=== PATIENT | female | born 1975 | race Caucasian/White ===

== ENCOUNTER → 2017-09-29 15:11 | Outpatient (CLI) | payer BC, MEDICAID, SELFPAY ==
--- NOTE | 2017-09-29 15:19 | MRI_ITS ---
STUDY: MRI RIGHT MIDFOOT REASON FOR EXAM: Female, 42 years old. Severe ankle trauma 8 years ago. Pain in ball of foot to mid to proximal metatarsal. Evaluate plantar plate. TECHNIQUE: Standardized fat and water weighted pulse sequences were obtained in all 3 orthogonal planes. COMPARISON: Radiographs of the foot dated October 15, 2016. FINDINGS: Normal talonavicular articulation. Normal calcaneocuboid articulation. Normal navicular-cuneiform articulations. Normal intercuneiform articulations. There is mild arthrosis of the first tarsometatarsal joint (coronal series 6 images 6-12). There are hammertoe deformities of the toes (sagittal series 2 images 2-17). Normal Lisfranc ligament. Normal second and third tarsometatarsal articulations. Normal cuboid fourth and cuboid fifth tarsometatarsal articulation. Normal first through fifth metatarsi. Normal tibialis anterior tendon. Normal extensor hallucis longus tendon. Normal extensor digitorum longus tendons. Normal peroneus longus tendon and distal insertion. Normal peroneus brevis tendon and distal insertion. Normal intrinsic muscles of the mid and forefoot region. Normal extensor digitorum brevis muscle. Normal subcutis adipose space. MRI/Lower Ext/No Jt/w/o IMPRESSION: Osteoarthritic changes as described. No other significant abnormality. Electronically Signed: Manuel English MD at 17:14 EDT , Service support ,
== END ==
PROVIDERS: Family Provider Nurse Practitioner Family; PCP Nurse Practitioner Family; Visit Provider Podiatrist
DX: S93.525A Sprain of metatarsophalangeal joint of left lesser toe(s), initial encounter (principal); X58.XXXA Exposure to other specified factors, initial encounter; Y93.9 Activity, unspecified; Y92.9 Unspecified place or not applicable; Y99.9 Unspecified external cause status
CPT/HCPCS: 73718

== ENCOUNTER → 2017-11-07 11:56 | Outpatient (CLI) | payer BC, MEDICAID, SELFPAY ==
[2017-11-07 12:51] LABS: Absolute Lymphocyte Count 2.37 X10^3/ul (0.83-4.51); Absolute Neutrophil Count 5.1 X10^3/uL (2.0-7.7); Basophil# 0.05 X10^3/uL; Basophil% 0.6 % (0-1); Eosinophil# 0.13 X10^3/uL; Eosinophils% 1.6 % (0-5); Hematocrit 36.9 % (37-47); Lymphocyte # 2.37 X10^3/ul (4.0); Lymphocyte % 29.2 % (19-41); Mean Corp Hgb Conc 32.5 g/gl (32-36); Mean Corpuscular Hgb 30.4 pg (27.0-32.0); Mean Corpuscular Volume 93.4 fL (81-99); Mean Platelet Vol. 8.9 fl (6.2-12.0); Monocyte# 0.44 X10^3/uL; Monocyte% 5.4 % (0-10); Neutrophil # 5.05 X10^3/uL (2.7-7.7); Neutrophil % 62.2 % (47-70); Platelet Count 292 K/mm3 (150-450); RBC Distribution Width CV 14.2 % (11.6-14.6); RBC Distribution Width SD 46.9 fl (35.1-43.9); Red Blood Count 3.95 M/mm3 (4.2-5.4); White Blood Count 8.1 K/mm3 (4.4-11.0)
[2017-11-07 12:52] LABS: POSITIVE COUNT NO; POSITIVE DIFFERENTIAL NO; POSITIVE MORPHOLOGY NO
[2017-11-07 13:16] LABS: ALB/GLOB Ratio 0.8 RATIO (0.9-2.4); AST(SGOT) 18 U/L (15-37); Alanine Aminotransfer ALT/SGPT 38 U/L (13-56); Albumin, Serum 3.3 g/dL (3.2-5.0); Alkaline Phosphatase 83 U/L (45-117); Anion Gap 13 (5-15); BUN 18 mg/dL (7-18); BUN/Creat Ratio 20.6 RATIO (10-20); Calcium,Total 8.5 mg/dL (8.5-10.1); Chloride 107 mmol/L (98-107); Creatinine, Serum 0.87 mg/dL (0.55-1.02); EST Glomerular Filtration Rate 75 mL/min (>60); Est Glom Filt Rate - Afr Amer 91 mL/min (>60); Globulin 3.9 g/dL (2.2-4.2); Glucose 85 mg/dL (74-106); Potassium 3.9 mmol/L (3.5-5.1); Protein, Total 7.2 g/dL (6.4-8.2); Sodium Level 142 mmol/L (136-145)
== END ==
PROVIDERS: Family Provider Nurse Practitioner Family; PCP Nurse Practitioner Family; Visit Provider Family Medicine
DX: Z01.818 Encounter for other preprocedural examination (principal)
CPT/HCPCS: 36415; 80053; 85025

== ENCOUNTER 2017-12-02 05:46 | Day surgery (SDC) | payer BC, MEDICAID, SELFPAY ==
[2017-12-02] VITALS (7 sets, daily range): BP systolic 101–119; BP diastolic 60–77; PULSE 78–87; RESP 16–114; TEMP 36.4–37.2; O2SAT 96–100; BMI 26.4
--- NOTE | 2017-12-02 | BON_PTH ---
PATIENT: WOO MORRIS LOC: [facility] U#:[id number] AGE/SX: 42/F ROOM: RE12/02/[address]: Dr. Cristhian Al DPM : 1975 BED: DIS: 12/02/2017 SPEC #: [id number] RECD: 12/02/17 11:53 STATUS: MACI REElvira #: [id number] ELAINE: 12/02/17 00:[address]: Cristhian Al DEPT: SURGICAL PATHOLOGY RECD BY: Leo Warren ENTERED: 12/02/17 11:53 SP TYPE: Bone OTHR DR: Deny Link, MANAGER OF MAINTENANCE-C Tissues: Bone of foot, NOS Procedures: Decalcification bone/plaque Surgery Specimen Level III HEADER OPERATION: Second metatarsal osteotomy second digit hammertoe, arthroplasty PRE-OP DIAGNOSIS: Left foot hammertoe TISSUE SUBMITTED: Resected bone left second toe and first metatarsal cuneiform MICROSCOPIC DIAGNOSIS Left second toe and first metatarsal cuneiform bone: Pieces of bone with reactive changes, clinically left second digit hammertoe. ANGEL:cain 12/07/17 MICROSCOPIC DESCRIPTION Slides are reviewed. GROSS DESCRIPTION Received in fixative is one container labeled with the patient's name and designated resected bone left second toe and first metatarsal cuneiform. The specimen consists of multiple fragments of bone that in aggregate measure 2.5 x 2.5 x 0.4 cm. The entire specimen is submitted in one cassette after decalcification. / ANGEL:cain 12/02/17 TC:5 CPT: 59706, 97863
--- NOTE | 2017-12-02 06:06 | EKG12_ITS ---
Test Reason : PRE OP Blood Pressure : / mmHG Vent. Rate : 087 BPM Atrial Rate : 087 BPM P-R Int : 124 ms QRS Dur : 092 ms QT Int : 390 ms P-R-T Axes : 058 042 055 degrees QTc Int : 469 ms Normal sinus rhythm Normal ECG Confirmed by SHIRLEY GILES, JAYJAY ([id number]), managing editor SAUD BARBER ([id number]) on 12/07/2017 2:17:55 PM Referred By: Cristhian Al Confirmed By:JAYJAY WATSON MD
[2017-12-02 06:30] LABS: Absolute Lymphocyte Count 2.02 X10^3/ul (0.83-4.51); Absolute Neutrophil Count 4.7 X10^3/uL (2.0-7.7); Basophil# 0.03 X10^3/uL; Basophil% 0.4 % (0-1); Eosinophil# 0.17 X10^3/uL; Eosinophils% 2.2 % (0-5); Hematocrit 34.6 % (37-47); Hemoglobin 11.1 g/dl (12.0-15.0); Lymphocyte # 2.02 X10^3/ul (4.0); Lymphocyte % 26.7 % (19-41); Mean Corp Hgb Conc 32.1 g/gl (32-36); Mean Corpuscular Hgb 30.5 pg (27.0-32.0); Mean Corpuscular Volume 95.1 fL (81-99); Mean Platelet Vol. 8.8 fl (6.2-12.0); Monocyte# 0.63 X10^3/uL; Monocyte% 8.3 % (0-10); Neutrophil # 4.71 X10^3/uL (2.7-7.7); Neutrophil % 62.3 % (47-70); Platelet Count 161 K/mm3 (150-450); RBC Distribution Width CV 13.7 % (11.6-14.6); RBC Distribution Width SD 47.7 fl (35.1-43.9); Red Blood Count 3.64 M/mm3 (4.2-5.4); White Blood Count 7.6 K/mm3 (4.4-11.0)
[2017-12-02 06:35] LABS: POSITIVE COUNT NO; POSITIVE DIFFERENTIAL NO; POSITIVE MORPHOLOGY NO
[2017-12-02 06:49] LABS: ALB/GLOB Ratio 0.9 RATIO (0.9-2.4); AST(SGOT) 12 U/L (15-37); Alanine Aminotransfer ALT/SGPT 24 U/L (13-56); Albumin, Serum 3.4 g/dL (3.2-5.0); Alkaline Phosphatase 81 U/L (45-117); Anion Gap 8 (5-15); BUN 15 mg/dL (7-18); BUN/Creat Ratio 18.6 RATIO (10-20); Calcium,Total 8.4 mg/dL (8.5-10.1); Chloride 111 mmol/L (98-107); Creatinine, Serum 0.81 mg/dL (0.55-1.02); EST Glomerular Filtration Rate 82 mL/min (>60); Est Glom Filt Rate - Afr Amer 99 mL/min (>60); Estimated Creatinine Clearance 83.84 ml/min; Globulin 3.6 g/dL (2.2-4.2); Glucose 74 mg/dL (74-106); Potassium 3.3 mmol/L (3.5-5.1); Sodium Level 142 mmol/L (136-145)
[2017-12-02] MEDS: Cefazolin 2 GM in 0.9% Normal Saline 100 ML IV (07:37)
[2017-12-02] MEDS: Bupivacaine Mpf 0.5% 30 ML VIAL (07:47)
--- NOTE | 2017-12-02 09:27 | PCM.DC.POD ---
Discharge Diet: Light diet - advance as tolerated Discharge Activity: May Not Drive Weight Bearing Status: No weight bearing - No weightbearing to left foot Keep extremity elevated above heart level: Left Leg - Keep left foot elevated for at least 50 minutes per hour using pillows Call your doctor if your incision/area has: Continuous Slow Oozing, Sudden Increased Bleeding, Foul Smelling Discharge Call your doctor if you observe: Fever of 101 or Higher, Coldness, Increased Pain, Shortness of breath, Chest pain, Increased palpitations (irregular heartbeat), Calf discomfort, Uncontrolled pain Cleanse incision/area with: Do not get Incision Wet, Keep Dressing Clean & Dry Allergies/Adverse Reactions: Allergies ciprofloxacin Allergy (Verified 11/25/17 09:37) Rash gabapentin Allergy (Verified 11/25/17 09:37) Other Medications to take at Discharge Albuterol IH (ProAir) [Proair Hfa] 2 puff INHALATION Q4H PRN PRN 11/07/16 Dicyclomine HCl [Bentyl] 20 mg PO Q6H PRN PRN 11/07/16 Estradiol 1 mg PO DAILY 11/07/16 Haloperidol [Haldol] 5 mg PO DAILY 11/07/16 Loratadine 10 mg PO DAILY 11/07/16 Mometasone/Formoterol [Dulera 100 Mcg/5 Mcg Inhaler] 13 gm IH BID 11/07/16 Montelukast Sodium 10 mg PO DAILY 11/07/16 Sumatriptan Succinate [Imitrex] 1 tab PO DAILY PRN 11/07/16 Topiramate [Topamax] 200 mg PO BID 11/07/16 proMETHazine tablet [Phenergan tablet] 25 mg PO Q8H PRN PRN 11/07/16 Sertraline HCl [Zoloft] 100 mg PO DAILY tablet 11/08/16 Oxycodone HCl/Acetaminophen [Percocet 5/325] 1 - 2 tab PO Q6H PRN PRN 3 Days #30 tab 12/02/17 The following prescriptions were given: Oxycodone HCl/Acetaminophen [Percocet 5/325] 1 - 2 tab PO Q6H PRN PRN 3 Days #30 tab PRN Reason: Pain Primary Care Physician: Deny Link NP-C [Primary Care Provider] - Test Results: Test results from this visit will be discussed in further detail at your follow-up appointment, if applicable. Please Follow Up With: Cristhian Al DPM When: within 1 week, sooner if needed
--- NOTE | 2017-12-02 09:28 | PCM.OPRPT ---
Report of Operation Date of Procedure: 12/02/17 Pre-Operative Diagnosis: Metatarsalgia, osteoarthritis, 2nd digit hammer toe, deformed 2nd metatarsal, exostosis 1st metatarsal cuneiform joint all left foot Post-Operative Diagnosis: Same Surgery/Procedure Performed:: 2nd metatarsal osteotomy, left foot. arthroplasty\correction of 2nd digit hammer toe, left. Exostectomy left 1st metatarsal cuneiform joint flight attendant: Yes - Dr. Fontaine Type of Anesthesia:: General, Local Specimen's removed: bone from 2nd digit hammer toe, 2nd metatarsal and 1st metatarsal cuneiform joint all left foot - sent to pathology Estimated Blood Loss (mL): 1mL Description of Procedure: Indications: This is a 42 year old female with chronic left foot pain - at level of the 2nd metatarsal phalangeal joint (MTPJ) and 2nd digit hammer toe, as well as to the 1st metatarsal cuneiform joint exostosis. She has continued limited/significant pain despite changes in shoegear, orthotics, padding, offloading, corticosteroid injection, rest, activity modifications, pain medications. She has elected to undergo surgical intervention - left 2nd metatarsal osteotomy with correction of 2nd digit hammer toe (arthroplasty) as well as 1st metatarsal cuneiform joint exostectomy. This was discussed with her in great detail, reviewed all the possible benefits vs risks, as well as the goals and expectations. Reviewed the typical healing/estimated healing time and post op course. This was discussed with her in detail, she agreed expressed understanding and agreement. All of her questions were answered. No guarantees were given nor implied. Operative Procedure: The patient was brought back to the operating room and was placed onto the operating room table in the supine position. She was carefully secured to the operating room stable with a safety belt around her waist. She received 2 grams of intravenous Ancef for antibiotic prophylaxis. The patient received general anesthesia per the anesthesia team. A well padded pneumatic tourniquet was applied around the left ankle. The left foot was scrubbed, prepped, and draped in the usual aseptic fashion. Further attention was directed to the left foot. There was significant hammer toe deformity of the 2nd digit, there was deformed long 2nd metatarsal and prominent 2nd metatarsal head plantarly. There was exostosis to the dorsal and medial 1st metatarsal cuneiform joint. The patient's left foot was elevated and the left ankle pneumatic tourniquet was inflated to 250mmHg. Using a 15 blade a linear longitudinal skin incision was overlying the dorsal lateral aspect of the 2nd metatarsal phalangeal joint (MTPJ). Careful blunt dissection was completed down through the subcutaneous layer to the dorsal 2nd MTPJ capsule. The capsule of the 2nd MTPJ was identified and was carefully incised dorsally, it was carefully reflected from the dorsal, medial and lateral aspect, exposing the 2nd metatarsal head. There was noted to be significant degenerative changes of the dorsal 2nd metatarsal head due to base of the 2nd digit proximal phalanx sitting on the head of 2nd metatarsal. A McGlamry was used to release the adhesions of the plantar 2nd metatarsal head. Using a powered sagittal saw a Jenaro osteotomy was completed to the 2nd metatarsal, parallel to the weightbearing surface. The 2nd metatarsal head was shorted to be in line with the normal parabola of the metatarsal heads. The osteotomy was fixated using rigid open reduction internal fixation technique using two 2.0mm Synthes screws. There is good bone to bone contact and compression with the fixation. This was confirmed using intraoperative flouroscopy. The screws were not in the 2nd MTPJ. There was also noted to be enlarged plantar condyles of the 2nd metatarsal head which were gently smoothed down and resected using a powered sagittal saw, the resected bone was sent to pathology. At this time the 2nd metatarsal was in good position with intact fixation across the osteotomy site. There was good smooth normal range of motion to the 2nd MTPJ with no grinding, popping or clicking. There was negative dorsal drawer or instability of the 2nd MTPJ plantar plate at this time. The site was flushed out with copious amounts of normal saline solution. The joint capsule was reapproximated using 3-0 Vicryl, the subcutaneous tissue layer was reapproximated using 3-0 Vicryl, and the skin was reapproximated using 4-0 Monocryl. Further attention was directed to the 2nd toe which was contracted at the proximal interphalangeal joint. Two semi-elliptical conversing skin incisions were made using a 15 blade overlying the dorsal proximal interphalangeal joint. The skin within these incisions was excised. Careful dissection was completed down to the extensor digitorum longus tendon and it was incised transversely over the joint, and it was retracted exposing the proximal interphalangeal joint capsule. The proximal interphalangeal joint capsule was incised and the collateral ligaments of the joint were released using a 15 blade. The head of the 2nd toe proximal phalanx was resected using a powered sagittal saw. The resected bone was sent to pathology. A kwire was placed down the middle of the phalanges holding the toe in rectus position. The site was flushed out with copious amounts of normal saline solution. The skin was reapproximated using 3-0 Monocryl. The kwire was trimmed and capped. Intraoperative fluoroscopy confirmed proper placement of the kwire and rectus position of the 2nd toe. Attention was directed to the exostosis of the dorsal and medial 1st metatarsal cuneiform joint. A skin incision was made overlying the dorsal asepct of the 1st metatarsal cuneiform joint using a 15 scalpel blade, medial to the Extensor Hallucis Longus tendon. Dissection was completed down to the exostosis and this was resected using a bone cutting rongeur, powered sagittal saw and bone smitha being sure not to cause osteonecrosis. Resected exostosis was sent to pathology. The exostosis was removed, and this was confirmed using intra operative fluoroscopy. the site was flushed out with copious amounts of normal saline solution and the subcutaneous tissue layer was reapproximated using 3-0 Vicryl. The skin was reapproximated using 3-0 Monocryl. The pneumatic tourniquet was deflated at end of the procedure, total tourniquet time was 90 minutes. There was immediate return of warmth and perfusion to the foot and to all five toes on the foot. CFT < 2 seconds to all toes with normal temperature present. Pedal pulses were intact. Cavilon was painted to the sutured skin edges and steristrips were applied across the sutured skin incisions. All vital structure, including all vital neurovascular structures were properly identified and protected as necessary throughout the procedure. An additional 20mL of 0.5% Bupivacaine plain was given as a local nerve block around the 1st metatarsal cuneiform joint and 2nd ray of the left foot for further post operative pain control. A dressing was applied which consisted of Betadine soaked adaptic, 4x4 gauze, kerlix and reena dressing to the left foot. The patient tolerated the above operative procedure well at the anesthesia well with no complications. The patient was transported to the recovery room with vital signs stable and in good condition. Post operative orders were placed. Post operative instructions were reviewed with patient today, both verbal and written, as well as with her significant other who was with her today. No weightbearing left foot, keep foot elevated for at least 50 minutes of every hour, keep dressing clean, dry and intact. Prescription for Percocet 5mg/325mg was prescribed: 1-2 tabs PO q 6 hours PRN pain for pain control. Patient was fitted for a surgical shoe. She is to follow up with me in office within 1 week, sooner if needed. Grafts/Implants Used: 2 x 2.0mm Synthes cortical screws, 1 x 0.062incmarilyn Cam - Complications None
[2017-12-02] MEDS: oxyCODONE 5 MG Tablet PO (10:49)
== END 2017-12-02 11:41 | disposition home or self-care (01) ==
LOC: SDC 05:47 → AC 05:48
PROVIDERS: Family Provider Nurse Practitioner Family; PCP Nurse Practitioner Family; Visit Provider Podiatrist
DX: M20.42 Other hammer toe(s) (acquired), left foot (principal); M19.072 Primary osteoarthritis, left ankle and foot; M77.42 Metatarsalgia, left foot; M89.9 Disorder of bone, unspecified; J45.909 Unspecified asthma, uncomplicated; K21.9 Gastro-esophageal reflux disease without esophagitis; F32.9 Major depressive disorder, single episode, unspecified; F41.9 Anxiety disorder, unspecified; F17.200 Nicotine dependence, unspecified, uncomplicated; Z79.899 Other long term (current) drug therapy
CPT/HCPCS: 28104; 28285; 28308; 36415; 73630; 76000; 80053; 85025; 88304; 88311; 93005; C1713; J7120; J2405

== ENCOUNTER 2018-03-06 15:30 | Outpatient (RCR) | payer BC, MEDICAID, SELFPAY ==
--- NOTE | 2018-01-16 11:45 | HP.PTEVAL_ITS ---
Patient's Visit Information WOO MORRIS is a 42 year old F referred to Physical Therapy by Cristhian Al with a diagnosis of Surgery-see script-Left Foot 12/02/17. Date of Evaluation: 01/16/18 Physical Therapist: Anat Sánchez - Visit Plan Frequency: 2x /Week Duration: 4 Weeks Plan: Focus on ROM, strength and muscular endurnace s/p surgical intervention. - Subjective Subjective: 12/02/17 s/p Left 2nd metatarsal osteotomy, arthroplasty/correction of the 2nd toe, exostectomy 1st metatarsal cuneiform joint. Went home after surgery- single story home- with 7-8 steps with a partial hand rail. Was walking with a walker and is now using one crutch. Wears the boot during the day but takes it off at night to sleep. Fully I before surgery. 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 The foot is getting better- Worst: - 11/04 Agg: on it- sometimes gets sharp/shooting pain in the the foot itself. Describes the pain as nerve pain and throbbing. Does ache- when she gets off of the foot it eases quickly. Not taking pain meds only tylenol and advil Eases: getting off of it, Advil. Best: 07/05. Sleep: hard to get comfortable and will wake her up- side/back sleeper. Puts her boot on always before she gets up. PMhx: asthma, shoulder surgery, 4 surgies on the left ankle which led upto these problems- broke it in 3 places and had to have all the hardwear removed with arthritis. Meds: certrolene, estrodial, tizanaine, halopurinol, pantoprozol, trazadone, ventalin inhaler, dulaera inhaler, buproprion, buntyl. Saw Dr. Al last week- took x-rays which look great- screws are in place- told her to start PT- weaning off the crutch and putting more pressure on the foot and build strength. - Objective Posture: FH, RS. Gait: antalgic- CAM walker on the left LE and axillary crutch on the left with correction to the right side. Step to pattern decreased melany and reports of pain. Observation: dry skin along foot/ankle- incisions are healing well with no s/s of infection. Palpation: tender along incisions, foot from midfoot forwards. ROM: Knee: WFL, Ankle: DF: 10 degrees from neutral reports pain at end range, PF: 20 degrees reports stiffness at end range, Inv: 30 degrees with pain, Ever: 20 degrees with pain. Great Toe: flexion: 5 degrees, extn: 8 degrees pain with both movements. Strength: knee: 5/5, Ankle:3+/5 with pain in available range, Toe: unable to test secondary to pain. Flexibility: Gastroc: severe, Soleus: severe, Hamstring: moderate - Goals Goal 1:: Patient will be I with HEP and progression Goal Time Frame: 4-6 Weeks Goal 2:: Patient will ambulate >300 feet with a normalized gait pattern and shoe with no AD. Goal Time Frame: 4-6 Weeks Goal 3:: Patient will demo full AROM of the ankle where deficit to ease ADL's. Goal Time Frame: 4-6 Weeks Goal 4:: Patient will report 2/10 pain for 1 week Goal Time Frame: 4-6 Weeks Goal 5:: Patient will SLS for 15 seconds without UE A to ease ADL's. Goal Time Frame: 4-6 Weeks - Rehabilitation Potential Physical Therapy Diagnosis: Patient presents with hypomobility- she has decreased ROM, strength and muscular endurance leading to abnormal gait pattern and decreased ability to perform normalized ADL's. Rehabilitation Potential: Fair - Anticipated Interventions Patient/Client Instruction: Educate patient on: Benefits of Fitness Program Therapeutic Exercise to Include: Strength training, Endurance training, Balance training, Agility training, Body mechanics, Flexibilty training, Gait and locomotor training, Passive ROM, Active ROM For the Purpose of:: To improve muscle performance and motor function TENS: Yes Cryotherapy (ice pack, ice massage): Yes Ultrasound (thermal/non thermal): No For the Purpose of:: To decrease pain Thank you for the opportunity to evaluate your patient. For Medicare and Medicare HMO plans, please review the plan of care and approve it. It will need to be FAXED BACK to us at [phone] for Medicare purposes. Please let me know if there are questions or concerns regarding this plan of care. Physician Signature: Date:
--- NOTE | 2018-02-13 16:05 | HP.PTREVAL_ITS ---
Cristhian Al, It has been my pleasure to treat WOO MORRIS over the last 6 visits for Surgery-see script-Left Foot 12/02/17. Please see the progress note below for an update on the physical therapy plan of care! Subjective: Patient reports the toes are good but the bottom of the foot is shaky and the top still really hurts. The pain comes and goes but can also be constant. Worst: 7.5/10 Agg: walking Best: 6/10 Eases: cream. Is wearing the boot all the time when she is walking around. Goes to the MD next week. Saw him last the - wear the boot, do exercises and get off the crutches. Is now off the crutches complete. Feels that she is improving but she feels there is more to improve. Objective/Function: Posture: FH, RS. Gait: antalgic- CAM walker no AD Observation: incisions are healing well with no s/s of infection. Palpation: tender along incisions, foot from midfoot forwards. ROM: Knee: WFL, Ankle: DF: 5 degrees, PF: 50 degrees reports stiffness at end range, Inv: 40 degrees, Ever: 35 degree. Great Toe: flexion: 10 degrees, extn: 10 degrees pain with both movements. Strength: knee: 5/5, Ankle:4/5 with mild pain in available range, Toe: unable to test secondary to pain. Flexibility: Gastroc: moderate, Soleus: moderate Plan Plan: Continue 2x a week for 4 weeks Goals Goal 1:: Patient will be I with HEP and progression Goal Time Frame: 4-6 Weeks Goal Progress: Progressing Goal 2:: Patient will ambulate >300 feet with a normalized gait pattern and shoe with no AD. Goal Time Frame: 4-6 Weeks Goal Progress: Progressing Goal 3:: Patient will demo full AROM of the ankle where deficit to ease ADL's. Goal Time Frame: 4-6 Weeks Goal Progress: Progressing Goal 4:: Patient will report 2/10 pain for 1 week Goal Time Frame: 4-6 Weeks Goal Progress: Progressing Goal 5:: Patient will SLS for 15 seconds without UE A to ease ADL's. Goal Time Frame: 4-6 Weeks Goal Progress: Progressing Anticipated Interventions Patient/Client Instruction: Educate patient on: Benefits of Fitness Program Therapeutic Exercise to Include: Strength training, Endurance training, Balance training, Agility training, Body mechanics, Flexibilty training, Gait and locomotor training, Passive ROM, Active ROM For the Purpose of:: To improve muscle performance and motor function TENS: Yes Cryotherapy (ice pack, ice massage): Yes Ultrasound (thermal/non thermal): No For the Purpose of:: To decrease pain Please do not hesitate to contact me at [phone] by phone or Fax: if you have questions or concerns regarding this new plan of care! Sincerely, Anat Sánchez
== END 2018-03-06 19:00 | disposition home or self-care (01) ==
LOC: PT 15:30
PROVIDERS: Family Provider Nurse Practitioner Family; PCP Nurse Practitioner Family; Referring Provider Podiatrist; Visit Provider Podiatrist
DX: Z98.890 Other specified postprocedural states (principal)
CPT/HCPCS: 97110; 97161; 97164

== ENCOUNTER 2018-08-05 17:10 | Emergency (ER) | payer BC, SELFPAY ==
[2018-08-05 17:11] VITALS: BP 122/71; PULSE 84; RESP 15; TEMP 36.3; O2SAT 99; BMI 32.8
--- NOTE | 2018-08-05 17:23 | ED.VISSUMM ---
- ER Visit Summary Date of Service: 08/05/18 Chief Complaint: Left foot injury History of Present Illness: The patient is a 43 F presents to the emergency department left foot injury. Patient has a history of multiple foot and ankle surgeries. She follows with . She states that yesterday, she accidentally kicked the bottom of her bed. She felt something crack in her third toe. She has pins in her second toe and feels like it is misshapen. She is having difficulty walking because of pain. She denies other injury. She is otherwise been in her normal state of health Physical Examination: Exam is relatively unremarkable. Patient does have contusion of the third and fourth toe. Pulses are normal. Sensation is preserved to light touch. Test Results: [] Emergency Department Course and Treatment: Plain films were obtained of the foot. Not sure if the patient has a new fracture of the proximal phalanges of the second toe versus a nonunion because on her old x-ray this is where she had operative fixation and it appears as if it never healed. She does have a nondisplaced fracture of the fourth proximal phalanges. Patient be placed in a postoperative shoe. She was given a short course of analgesics. She is counseled to call Dr. Torres's office on Tuesday for close. She is comfortable with this plan of care. Treatment Plan: [] Disposition: Discharge Impression: 1. Left second and fourth toe fracture This note was generated with [employer] dictation software. It may contain incorrect words, spelling, and punctuation that were not noted in review of the chart prior to signing ED Disposition - Plan for ED Patient: Instructions: ED Fx Foot Prescriptions: Hydrocodone Bitart/Apap 5-325 [[place] 5MG-325MG] 1 tab PO Q6H PRN PRN 3 Days #10 tab PRN Reason: Pain Referrals: Cristhian Al DPM [STAFF PHYSICIAN] - 2 Days
--- NOTE | 2018-08-05 17:25 | RAD_ITS ---
STUDY: X-RAY - LEFT FOOT CLINICAL: Female, 43 years old. Trauma TECHNIQUE: 3 view(s) of the foot. COMPARISON: Previous study of 12/02/2017 FINDINGS: There are status post osteotomy changes of the second proximal phalanx. There has been interval removal of a fixation pin of the second toe noted on the previous study. There are 2 fixation pins of the second metatarsal head. There is evidence of previous orthopedic hardware of the visualized distal tibia and fibula. The soft tissue structures are unremarkable. There is no evidence of acute fracture or dislocation. RAD/Foot min 3 Views IMPRESSION: Postoperative changes of the second digital ray as detailed above. Evidence of previous orthopedic hardware of the visualized distal tibia and fibula. There is no evidence of acute fracture or dislocation. Electronically Signed: Ricki Palomo MD at 18:17 EDT , Service support ,
[2018-08-05] MEDS: HYDROcodone Bitartrate/Apap 5/325 Tablet PO (17:27)
[2018-08-05 17:59] VITALS: RESP 18
== END 2018-08-05 18:20 | disposition home or self-care (01) ==
LOC: ED 18:13
PROVIDERS: Emergency Provider Emergency Medicine; Family Provider Nurse Practitioner Family; PCP Nurse Practitioner Family
DX: S92.515A Nondisplaced fracture of proximal phalanx of left lesser toe(s), initial encounter for closed fracture (principal); S92.502A Displaced unspecified fracture of left lesser toe(s), initial encounter for closed fracture; W22.03XA Walked into furniture, initial encounter; Y93.9 Activity, unspecified; Y92.9 Unspecified place or not applicable; Y99.9 Unspecified external cause status; Z79.899 Other long term (current) drug therapy
CPT/HCPCS: 73630; 99283

== ENCOUNTER 2018-12-11 08:31 | Day surgery (SDC) | payer BC, SELFPAY ==
[2018-12-11] VITALS (7 sets, daily range): BP systolic 96–113; BP diastolic 55–93; PULSE 64–69; RESP 16–20; TEMP 36.5–36.8; O2SAT 99–100; BMI 31.7
[2018-12-11] MEDS: Lactated Ringers 1,000 ML 100 ML IV (09:31)
[2018-12-11] MEDS: MethylPREDNISolone Acetate 80 MG/ML Vial (10:16)
[2018-12-11] MEDS: Bupivacaine 0.25% 30 ML Vial (10:17)
--- NOTE | 2018-12-11 10:20 | RAD_ITS ---
PROCEDURE: Left lumbar sympathetic nerve block. DATE OF EXAMINATION: December 11, 2018 INDICATION: Female, 43 years old. Pain. FLUOROSCOPY TIME (if supplied): (0:15) minutes/seconds. 5 images were obtained. Intraoperative imaging provided for left lumbar sympathetic nerve block. RAD/Spine 1 View Any Level IMPRESSION: Intraoperative imaging provided for left lumbar sympathetic nerve block. Electronically Signed: Rene Ramirez, at 15:50 EDT , Service support ,
--- NOTE | 2018-12-11 13:41 | PCM.OPRPT ---
Problem List (1) Left foot pain Status: Chronic Report of Operation Date of Procedure: 12/11/18 Description of Surgical Findings:: PROCEDURE: Left-sided lumbar sympathetic plexus steroid injection under fluoroscopic guidance PREOPERATIVE DIAGNOSIS: Left lower extremity pain, sympathetically mediated pain POSTOPERATIVE DIAGNOSIS: Left lower extremity pain, sympathetically mediated pain ANESTHESIA: MAC COMPLICATIONS: None BLOOD LOSS: Minimal PROCEDURE IN DETAIL: History and physical today was reviewed. Risks and benefits of the procedure were explained. The patient understood, agreed to our procedure, and informed consent was obtained. IV inserted per routine protocol. The patient was taken to the operating room, placed in a prone position with a pillow positioned underneath the abdomen. The the left side of the lower back was prepped and draped in a sterile fashion using iodine x3 under fluoroscopy guidance and a oblique view of the L3-4 vertebral bodies were visualized the skin and subcutaneous tissue in size approximately 5 cc of 1% lidocaine using a 25-gauge regular needle at approximately 4 cm to the left of midline under direct visualization fluoroscopy using a 22-gauge 5 inch spinal needle the needle was advanced by the skin the tip of the knee was maneuvered and directed towards the superior superior most aspect of the transverse process at L3 level of the tip of the needle was then maneuver and directed more anterior to the body of L3-L4 on lateral view of the needle was then further advanced under direct visualization fluoroscopy on the lateral view one-step the needle was anterior to the L3 body after negative aspiration for blood or CSF a total of 2 cc of contrast were injected to confirm correct placement of the needle anterior to the L3-L4 vertebral body with cephalocaudad spread the confirmation was obtained in AP as well as lateral view after repeated negative aspiration confirmation a total of 10 cc of preservative-free 0.25% Marcaine with 80 mg of Depo-Medrol were injected easily, the needles were then removed intact. The patient experienced no signs or symptoms intrathecal, intravascular injection. The patient experienced no paraesthesia. The procedure was completed without any apparent difficult, any complication. The patient appeared to tolerate well. ASSESSMENT AND PLAN: This is a 43-year-old female with left lower extremity pain sympathetically mediated pain status post left-sided lumbar sympathetic plexus steroid injection under fluoroscopic guidance. The patient will continue her current medications. The patient will follow in approximately 2 weeks for reevaluation.
== END 2018-12-11 11:27 | disposition home or self-care (01) ==
LOC: SDC 08:34 → AC 08:51
PROVIDERS: Family Provider Nurse Practitioner Family; PCP Nurse Practitioner Family; Referring Provider Anesthesiology Pain Medicine; Visit Provider Anesthesiology Pain Medicine
PROC: 3E0T3BZ Introduction of Anesthetic Agent into Peripheral Nerves and Plexi, Percutaneous Approach (ICD-10-PCS; CPT 64520; principal; 2018-12-11 10:15)
DX: G90.50 Complex regional pain syndrome I, unspecified (principal); M79.2 Neuralgia and neuritis, unspecified; M25.871 Other specified joint disorders, right ankle and foot; M79.672 Pain in left foot; M25.512 Pain in left shoulder; G43.909 Migraine, unspecified, not intractable, without status migrainosus; K58.9 Irritable bowel syndrome, unspecified; J45.909 Unspecified asthma, uncomplicated; K21.9 Gastro-esophageal reflux disease without esophagitis; F31.9 Bipolar disorder, unspecified; F41.9 Anxiety disorder, unspecified; F17.200 Nicotine dependence, unspecified, uncomplicated; Z79.891 Long term (current) use of opiate analgesic; Z79.899 Other long term (current) drug therapy; Z86.2 Personal history of diseases of the blood and blood-forming organs and certain disorders involving the immune mechanism; Z87.891 Personal history of nicotine dependence
CPT/HCPCS: 64520; 77003; 64483; 72020; J7120; J2405; J3490

== ENCOUNTER 2019-01-30 12:00 | Emergency (ER) | payer BC, SELFPAY ==
[2018-12-11 09:20] VITALS: BMI 31.7
[2019-01-30 12:01] VITALS: BP 130/77; PULSE 70; RESP 18; TEMP 36.6; O2SAT 99; BMI 31.4
--- NOTE | 2019-01-30 12:20 | RAD_ITS ---
STUDY: X-RAY - SACRUM/COCCYX REASON FOR EXAM: Female, 44 years old. Fall, pain TECHNIQUE: 3 view(s) of the sacrum and coccyx were obtained. COMPARISON: None. FINDINGS: Normal bilateral sacroiliac joints. Normal visualized sacral ala and fused sacral bodies. Normal sacrococcygeal junction with a normal angulation. Normal coccygeal segments. The presacral soft tissue structures are unremarkable. RAD/Sacrum-Coccyx min 2 Views IMPRESSION: Normal x-rays of the sacrum and coccyx. Electronically Signed: Deny Shay MD at 12:46 EST Tel , Service support ,
--- NOTE | 2019-01-30 12:20 | RAD_ITS ---
STUDY: X-RAY - LUMBAR SPINE REASON FOR EXAM: Female, 44 years old. Fall, low back pain. TECHNIQUE: 3 view(s) of the lumbar spine were obtained. COMPARISON: None FINDINGS: Normal lumbar lordosis. Mild levoscoliosis. There is a normal alignment of the vertebrae. Normal vertebral bodies and endplates. Normal disc space heights. The soft tissue structures are unremarkable. RAD/Lumbar Spine 2 or 3 Views IMPRESSION: No acute fracture or subluxation. Mild levoscoliosis. Electronically Signed: Deny Shay MD at 12:47 EST Tel , Service support ,
--- NOTE | 2019-01-30 12:21 | ED.DCSUM_ITS ---
History of Present Illness Chief Complaint: Back Informant: Patient Onset: Days - 2 Current Severity: Moderate Maximum Severity: Moderate Narrative: Patient presents with coccyx sacral and lower lumbar pain after a fall on her buttocks. Apparently she was intoxicated a few days ago and fell on her buttock. No head injury she has some tenderness over the right upper leg region and some shoulder pain but she can remove them without any problems. No fever chills cough congestion. No chest she is able to ambulate, pain is moderate Past Medical History - Allergies and Home Meds Allergies/Adverse Reactions: Allergies ciprofloxacin Allergy (Verified 01/30/19 12:03) Rash gabapentin Allergy (Verified 01/30/19 12:03) Other Primary Care Physician: Deny Link, IZA-C [Primary Care Provider] - Past Medical History: - - Reviewed and unremarkable Surgical History: - - I am not able to obtain information on the past surgeries from the patient due to her mental status change and confusion Smoking Status: Former smoker - Family History Maternal Family History: Reports: Unknown Paternal Family History: Reports: Unknown Review of Systems All systems negative except as indicated General: Reports: - - No head injury Eyes: Denies: Visual changes - bilaterally Cardiovascular: Denies: Chest pain Respiratory: Denies: Dyspnea, Cough Gastrointestinal: Denies: Abdominal pain, Nausea Musculoskeletal: Reports: Back pain Skin: Denies: Wounds Neurological: Denies: Headache, Weakness, Numbness Physical Exam Vital Signs/Narrative: Vital Signs Temp Pulse Resp BP Pulse Ox 01/30/19 12:01 97.9 F 70 18 130/77 H 99 General: Well nourished, Well developed, - - She appears in some distress Eyes: Perrl, EOMI Cardiovascular: Regular rate, Regular rhythm Respiratory: No distress, CTA bilaterally Abdomen: Soft, Nontender Back: - - There is some tenderness over the lower lumbar region, most of the pain is in the sacrum and coccyx region no obvious bruits. There is some tenderness over the right thigh region but full range of motion and able to ambulate well. Left shoulder has full range of motion with minimal tenderness no bony tenderness. Neurological: Normal Sensation Diagnostic/Tx/Re-eval Sacrum x-ray read by me as well as the radiologist shows normal alignment no fracture is seen. - Medical Decision Making Patient has normal x-rays. She appears well I will discharge in stable condition. ED Disposition - Plan for ED Patient: Disposition: Home or Assisted Living Diagnosis: Patient in stable condition at discharge, Coccyx contusion Instructions: CONTUSION, Coccyx/Sacrum Prescriptions: Naproxen [Naprosyn] 500 mg PO BID PRN #20 tab Prescription Printed Referrals: Deny Link, [employer]ISTANT-C [Primary Care Provider] - 3-5 Days
[2019-01-30] MEDS: HYDROcodone Bitartrate/Apap 5/325 Tablet PO (12:34)
== END 2019-01-30 13:17 | disposition home or self-care (01) ==
PROVIDERS: Emergency Provider Emergency Medicine; Family Provider Nurse Practitioner Family; PCP Nurse Practitioner Family
DX: S30.0XXA Contusion of lower back and pelvis, initial encounter (principal); M25.519 Pain in unspecified shoulder; W19.XXXA Unspecified fall, initial encounter; Y93.9 Activity, unspecified; Y92.9 Unspecified place or not applicable; Y99.9 Unspecified external cause status; Z87.891 Personal history of nicotine dependence
CPT/HCPCS: 72100; 72220; 99283

== ENCOUNTER 2019-03-26 09:03 | Emergency (ER) | payer BC, SELFPAY ==
[2019-03-26 09:04] VITALS: BP 109/67; PULSE 88; RESP 17; TEMP 37; O2SAT 98; BMI 30.7
--- NOTE | 2019-03-26 09:19 | ED.DCSUM_ITS ---
History of Present Illness Chief Complaint: Cold Sx Detail of Chief Complaint: Sinus infection Informant: Patient Onset: Weeks Context: Gradual Onset Current Severity: Moderate Maximum Severity: Moderate Narrative: Patient presents with sinus pressure and drainage for the past 2-1/2 to 3 weeks. She is seen her primary care physician as well as urgent care. She was given a course of steroids and nasal spray but no antibiotics. Patient symptoms have continued to worsen. She had subjective fever. Past Medical History - Allergies and Home Meds Allergies/Adverse Reactions: Allergies ciprofloxacin Allergy (Verified 03/26/19 09:04) Rash gabapentin Allergy (Verified 03/26/19 09:04) Other Primary Care Physician: Deny Link, [employer] [Primary Care Provider] - Past Medical History: - - Sinus infections Surgical History: - - I am not able to obtain information on the past surgeries from the patient due to her mental status change and confusion Smoking Status: Former smoker - Family History Maternal Family History: Reports: Unknown Paternal Family History: Reports: Unknown Review of Systems General: Reports: Fever, Subjective Eyes: Denies: Visual changes - bilaterally ENT: Denies: Bilateral ear pain, Sore throat Cardiovascular: Denies: Chest pain Respiratory: Denies: Dyspnea, Cough Gastrointestinal: Denies: Abdominal pain, Nausea, Vomiting, Diarrhea Musculoskeletal: Denies: Myalgias, Arthralgias Neurological: Denies: Headache Hematologic: Denies: Easy bruising Allergy: Denies: Uticaria Physical Exam Vital Signs/Narrative: Vital Signs Temp Pulse Resp BP Pulse Ox 03/26/19 09:04 98.6 F 88 17 109/67 98 Inital Vital Signs reviewed: Yes General: Well nourished, Well developed Head: Normocephalic ENT: Moist mucous membranes, TM's clear, - - Frontal and maxillary sinus tenderness. Cardiovascular: Regular rate, Regular rhythm Respiratory: No distress, CTA bilaterally Abdomen: Soft, Nontender, Nondistended Extremities: Nontender Skin: Normal color, No rash Neurological: Alert, Oriented x3 Psychological: Normal affect Diagnostic/Tx/Re-eval - Medical Decision Making Patient is had 2 to 3 weeks of sinus symptoms. She be covered with a course of Augmentin, first dose given here. ED Disposition - Plan for ED Patient: Disposition: Home or Assisted Living Diagnosis: Sinusitis Instructions: SINUSITIS, Abx Tx Prescriptions: Amox/Clavulanate Tablet [Augmentin Tablet] 875 mg PO Q12H #20 tab Transmission Status: Pending to [id number] Referrals: Deny Link, [employer] [Primary Care Provider] - 1-2 Weeks
[2019-03-26] MEDS: Amox/Clavulanate 875 MG Tablet PO (09:26)
== END 2019-03-26 09:42 | disposition home or self-care (01) ==
LOC: ED 09:27
PROVIDERS: Emergency Provider Emergency Medicine; Family Provider Nurse Practitioner Family; PCP Nurse Practitioner Family
DX: J32.9 Chronic sinusitis, unspecified (principal); Z79.899 Other long term (current) drug therapy; Z87.891 Personal history of nicotine dependence
CPT/HCPCS: 99284

== ENCOUNTER 2019-04-18 09:28 | Emergency (ER) | payer BC, SELFPAY ==
[2019-04-18 09:28] VITALS: BP 154/90; PULSE 100; RESP 17; TEMP 37.1; O2SAT 98; BMI 30.9
[2019-04-18 09:40] VITALS: O2SAT 97
[2019-04-18] MEDS: Ondansetron 4 MG/2 ML Vial IV (10:12)
[2019-04-18] MEDS: 0.9% Normal Saline 1,000 ML 1000 ML IV (10:12)
[2019-04-18] MEDS: Ketorolac 15 MG/ML Vial IV (10:12)
[2019-04-18 10:18] LABS: Absolute Lymphocyte Count 1.46 X10^3/uL (0.83-4.51); Absolute Neutrophil Count 5.1 X10^3/uL (2.0-7.7); Basophil# 0.06 X10^3/uL; Basophil% 0.8 % (0-1); Eosinophil# 0.11 X10^3/uL; Eosinophils% 1.5 % (0-5); Hematocrit 40.1 % (37-47); Lymphocyte # 1.46 X10^3/ul (4.0); Lymphocyte % 20.6 % (19-41); Mean Corp Hgb Conc 32.4 g/dL (32-36); Mean Corpuscular Hgb 30.7 pg (27.0-32.0); Mean Corpuscular Volume 94.8 fL (81-99); Mean Platelet Vol. 9.4 fl (6.2-12.0); Monocyte# 0.36 X10^3/uL; Monocyte% 5.1 % (0-10); NRBC Flagged by Analyzer 0 % (0-5); Neutrophil # 5.06 X10^3/uL (2.7-7.7); Neutrophil % 71.3 % (47-70); Platelet Count 203 K/mm3 (150-450); RBC Distribution Width CV 13.7 % (11.6-14.6); RBC Distribution Width SD 47.7 fl (35.1-43.9); Red Blood Count 4.23 M/mm3 (4.2-5.4); White Blood Count 7.1 K/mm3 (4.4-11.0)
[2019-04-18 10:30] LABS: Anion Gap 3 (5-15); BUN 23 mg/dL (7-18); BUN/Creat Ratio 23.6 RATIO (10-20); Calcium,Total 8.5 mg/dL (8.5-10.1); Chloride 115 mmol/L (98-107); Creatinine, Serum 0.98 mg/dL (0.55-1.02); EST Glomerular Filtration Rate 66 mL/min (>60); Est Glom Filt Rate - Afr Amer 79 mL/min (>60); Estimated Creatinine Clearance 67.86 ml/min; Glucose 69 mg/dL (74-106); Potassium 4.2 mmol/L (3.5-5.1); Sodium Level 141 mmol/L (136-145)
--- NOTE | 2019-04-18 11:00 | ED.DCSUM_ITS ---
- ER Visit Summary Date of Service: 04/18/19 Chief Complaint: Sinus infection History of Present Illness: The patient is a 44 F who sees Fransico Morales. She does not see an ENT. She reports that she has a sinus infection that began 1 month ago. She states that she was placed on Augmentin for 10 days. This did not improve. She went back to the doctor was still congested. She has been on doxycycline for the past 9 days. She reports that she is still not better. She reports that she had a Claritin changed to Zyrtec. Patient reports that she has not had a fever or chills. She has mild shortness of breath that is relieved with her inhaler. She has a cough productive yellow sputum without blood. She has nasal congestion when she blows her nose she gets yellow mucus with blood. She reports that she is been nauseated and vomited twice. No blood in her emesis. She had 6 episodes of diarrhea since yesterday. She has a headache that is 8 out of 10 in severity. Says sharp, throbbing pain that is increased with bending over or leaning her head forward. Physical Examination: Vitals: Stable. Afebrile. General: Well-nourished and well-developed. Head: Normocephalic atraumatic. Neck: Supple, no lymphadenopathy. No JVD. Nontender. Cardiovascular: Regular rate and rhythm. No murmurs. Respiratory: No respiratory distress. Clear to auscultation bilaterally. Abdominal: Soft, nontender, nondistended, normal bowel sounds. No guarding, rebound, or peritoneal signs. Back: Nontender. Extremities: Nontender, no edema. Skin: Normal color, no rash. Neurologic: Alert and oriented ?3. Cranial nerves II through XII are intact. Normal strength and sensation. Psych: Normal affect. Test Results: CBC shows segmented for 71. Chem-7 shows a chloride 115, BUN 23, glucose of 69. Emergency Department Course and Treatment: Patient had an IV placed. She was given Toradol and Zofran IV. She is resting comfortably. Treatment Plan: Prolonged discussion with patient that her symptoms are likely not bacterial in etiology and that is why the Augmentin and doxycycline have not helped. I suggested Sudafed, humidifier, and follow-up with Dr. Beavers in 1 week if not improving. Return to the emergency department for any worsening symptoms. Disposition: To home in improved and stable condition. Impression: 1. Sinusitis. 2. Vomiting/diarrhea. This note was generated with [employer] dictation software. It may contain incorrect words, spelling, and punctuation that were not noted in review of the chart prior to signing ED Disposition - Plan for ED Patient: Disposition: Home or Assisted Living Instructions: SINUSITIS, No Abx Prescriptions: Ondansetron [Zofran Odt] 4 mg PO Q8H PRN PRN #10 tab PRN Reason: Nausea Prescription Printed Referrals: Deny Link NP-C [Primary Care Provider] - 1-2 Days if not improving Shon Beavers MD [STAFF PHYSICIAN] - 1 Week
[2019-04-18 11:30] VITALS: BP 135/74; PULSE 68; RESP 15; O2SAT 97
== END 2019-04-18 11:34 | disposition home or self-care (01) ==
LOC: ED 10:11
PROVIDERS: Emergency Provider Emergency Medicine; PCP Nurse Practitioner Family
DX: J32.9 Chronic sinusitis, unspecified (principal); R11.2 Nausea with vomiting, unspecified; R19.7 Diarrhea, unspecified; J45.909 Unspecified asthma, uncomplicated; Z79.899 Other long term (current) drug therapy
CPT/HCPCS: 80048; 85025; 96361; 96374; 96375; 99283; J7030; J2405

== ENCOUNTER 2019-04-22 17:37 | Emergency (ER) | payer BC, SELFPAY ==
[2019-04-22 17:38] VITALS: BP 134/80; PULSE 115; RESP 16; TEMP 36.3; O2SAT 97; BMI 29.8
--- NOTE | 2019-04-22 18:54 | CT_ITS ---
STUDY: CT BRAIN WITHOUT CONTRAST REASON FOR EXAM: Female, 44 years old. Severe headache, sinus pain RADIATION DOSAGE (If Supplied By Facility): CTDIvol = ( 44.99 ) mGy, DLP = ( 745.49 ) mGycm TECHNIQUE: Transaxial CT imaging of the brain was performed without administration of intravenous contrast material. Individualized dose optimization techniques were used for this CT. COMPARISON: 09/20/2016 FINDINGS: Normal soft tissue structures. Normal calvarium. Normal size ventricles and extra-axial spaces for the patient''s age. Normal white matter tracts of the cerebral hemispheres. Normal basal ganglia and thalami. Normal brainstem. Normal cerebellum. There is no intracranial hemorrhage. There are no findings of an acute ischemic infarction. Mucosal thickening noted in the ethmoid sinuses with an air-fluid level noted in the right maxillary sinus likely acute. CT/Brain/Head without Contrast IMPRESSION: Normal unenhanced CT scan of the brain. Paranasal sinusitis with air-fluid level noted in the right maxillary sinus suggesting acute maxillary sinusitis Electronically Signed: Omar Cronin MD at 20:13 EST , Service support ,
--- NOTE | 2019-04-22 18:56 | CT_ITS ---
STUDY: CT FACIAL BONES WITHOUT CONTRAST REASON FOR EXAM: Female, 44 years old. HEADACHE X 1 Week, with facial and sinus pain RADIATION DOSAGE (If Supplied By Facility): CTDIvol = ( 29.38 ) mGy, DLP = ( 510.73 ) mGycm TECHNIQUE: The patient was scanned in a multi detector CT scanner. Sagittal and coronal images were reconstructed. Individualized dose optimization techniques were used for this CT. COMPARISON: None. FINDINGS: Normal soft tissue structures. Normal orbital castelan and orbital contents. Normal nasal bones and anterior nasal spine. Normal facial bones. There is no demonstrated fracture. Mucosal thickening noted in the ethmoid sinuses and air-fluid level noted in the right maxillary sinus. There is occlusion of the right ostiomeatal complex CT/Sinus/Facial Bone IMPRESSION: No demonstrated fracture Ethmoid sinusitis with occlusion of the right ostiomeatal comp Air-fluid level in the right maxillary sinus suggests acute maxillary sinusitis Electronically Signed: Omar Cronin MD at 20:28 EST , Service support ,
--- NOTE | 2019-04-22 18:58 | ED.DCSUM_ITS ---
History of Present Illness Chief Complaint: Headache Informant: Patient Onset: Weeks Context: Gradual Onset Timing: Continuous Narrative: Patient is a 44-year-old female with history of depression, migraine headache and sinusitis presenting with worsening sinus pain and headache. Patient initially started having symptoms over a month ago. She was put on a course of Augmentin and then another course of doxycycline. She states her symptoms only continue to worsen. She is had 2 prior ER visits for the same complaint. On her last visit she was referred to ENT and has appointment set up for May 03. Patient states the office told her that if she has any worsening symptoms she should go to the emergency room to be evaluated. She is not been seen by ENT yet. Patient states she does have a history of migraines but this headache feels different. States she is having a lot of pain around her nose and her forehead. She is when she blows her nose she is having blood as well as yellow mucus come out. She denies any fever but has been feeling chilled today. Patient denies any head injury or facial injury. She states she is never had sinusitis so bad. She states she is now feeling dizzy and lightheaded when she tries to stand. She states her vision feels blurry when she stands up but she denies any other vision changes. She does have some photophobia as well as associated nausea. She denies any neck pain or rash. She denies any chest pain, shortness of breath or difficulty breathing. She denies any abdominal pain or urinary symptoms. She states she is tried multiple [id number] me dications including Sudafed, Tylenol and Motrin cold and flu, Flonase as well as her regular migraine medication sumatriptan and Topamax. Past Medical History - Allergies and Home Meds Allergies/Adverse Reactions: Allergies ciprofloxacin Allergy (Verified 04/18/19 09:28) Rash gabapentin Allergy (Verified 04/18/19 09:28) Other Primary Care Physician: Deny Link NP-C [Primary Care Provider] - Past Medical History: - - Migraine headaches, depression, sinusitis Surgical History: noncontributory, - - I am not able to obtain information on the past surgeries from the patient due to her mental status change and confusion Smoking Status: Former smoker - Family History Maternal Family History: Reports: Unknown Paternal Family History: Reports: Unknown Review of Systems General: Reports: Chills, Malaise. Denies: Fever, Sweats Eyes: Reports: Blurred Vision - bilaterally - With standing. Denies: Visual changes - bilaterally, Diplopia ENT: Reports: - - Sinus pain. Denies: Rhinorrhea, Sore throat Cardiovascular: Denies: Chest pain, Palpitations Respiratory: Denies: Dyspnea, Cough, Dyspnea on exertion Gastrointestinal: Reports: Nausea. Denies: Abdominal pain, Vomiting, Diarrhea, Melena, Hematochezia Genitourinary: Denies: Dysuria, Hematuria, Frequency Musculoskeletal: Denies: Back pain, Extremity Pain Skin: Denies: Rash, Wounds Neurological: Denies: Headache, Weakness, Numbness Physical Exam Vital Signs/Narrative: Vital Signs Temp Pulse Resp BP Pulse Ox 04/22/19 17:38 97.4 F L 115 H 16 134/80 H 97 Inital Vital Signs reviewed: Yes General: Well nourished, Well developed, No Acute Distress, - - tearfull Head: Normocephalic, Atraumatic Eyes: Perrl, EOMI ENT: Moist mucous membranes, No rhinorrhea, TM's clear, Nasal congestion, Sinus tenderness - Frontal and ethmoid tenderness to palpation, no overlying erythema Neck: Supple, Nontender Cardiovascular: Regular rate, Regular rhythm, No murmurs Respiratory: No distress, CTA bilaterally, Chest nontender Abdomen: Soft, Nontender, Nondistended, Normal bowel sounds Back: Nontender, Normal Inspection Extremities: Nontender, No edema Skin: Normal color, No rash Neurological: Alert, Oriented x3, Cranial nerves II-XII grossly intact, Normal Strength, Normal Sensation Psychological: Normal affect, Normal Mood Diagnostic/Tx/Re-eval Clinical Impression(s) from Imaging Studies Brain CT 04/22/19 18:54 IMPRESSION: Normal unenhanced CT scan of the brain. Paranasal sinusitis with air-fluid level noted in the right maxillary sinus suggesting acute maxillary sinusitis Electronically Signed: Omar Cronin MD at 20:13 EST , Service support , Facial/Sinus 04/22/19 18:56 IMPRESSION: No demonstrated fracture Ethmoid sinusitis with occlusion of the right ostiomeatal comp Air-fluid level in the right maxillary sinus suggests acute maxillary sinusitis Electronically Signed: Omar Cronin MD at 20:28 EST , Service support , Laboratory Data 04/22/19 04/22/19 04/22/19 19:10 19:10 19:30 WBC 9.0 RBC 4.85 Hgb 14.8 Hct 45.1 MCV 93.0 MCH 30.5 MCHC 32.8 RDW Std Deviation 45.4 H RDW Coeff of [place] 13.2 Plt Count 267 MPV 9.6 Immature Gran % (Auto) 0.600 Neut % (Auto) 55.3 Lymph % (Auto) 36.6 [place] % (Auto) 5.2 Eos % (Auto) 1.6 Baso % (Auto) 0.7 Absolute Neuts (auto) 5.0 Absolute Lymphs (auto) 3.30 Nucleated RBC % 0 Sodium 139 Potassium 3.5 Chloride 108 H Carbon Dioxide 25.0 Anion Gap 6 BUN 23 H Creatinine 1.01 Estim Creat Clear Calc 65.85 Est GFR (MDRD) Af Amer 76 Est GFR (MDRD) Non-Af 63 BUN/Creatinine Ratio 22.8 H Glucose 87 Calcium 9.1 Total Bilirubin 0.10 L AST 8 L ALT 20 Alkaline Phosphatase 134 H Troponin I < 0.015 Total Protein 7.7 Albumin 3.3 Globulin 4.4 H Albumin/Globulin Ratio 0.8 L Lipase 39 L Urine Color Urine Clarity Urine pH Ur Specific [place] Urine Protein Urine Glucose (UA) Urine Ketones Urine Occult Blood Urine Nitrite Urine Bilirubin Urine Urobilinogen Ur Leukocyte Esterase Urine RBC Urine WBC Ur Squamous Epith Cells Urine Bacteria Urine Mucus Urine Test Negative 04/22/19 19:30 WBC RBC Hgb Hct MCV MCH MCHC RDW Std Deviation RDW Coeff of [place] Plt Count MPV Immature Gran % (Auto) Neut % (Auto) Lymph % (Auto) [place] % (Auto) Eos % (Auto) Baso % (Auto) Absolute Neuts (auto) Absolute Lymphs (auto) Nucleated RBC % Sodium Potassium Chloride Carbon Dioxide Anion Gap BUN Creatinine Estim Creat Clear Calc Est GFR (MDRD) Af Amer Est GFR (MDRD) Non-Af BUN/Creatinine Ratio Glucose Calcium Total Bilirubin AST ALT Alkaline Phosphatase Troponin I Total Protein Albumin Globulin Albumin/Globulin Ratio Lipase Urine Color Yellow Urine Clarity Clear Urine pH 6.0 Ur Specific [place] 1.020 Urine Protein Negative Urine Glucose (UA) Normal Urine Ketones Negative Urine Occult Blood Negative Urine Nitrite Negative Urine Bilirubin Negative Urine Urobilinogen Normal Ur Leukocyte Esterase 25 H Urine RBC 0-5 SEEN Urine WBC 0-5 SEEN Ur Squamous Epith Cells 5-10 SEEN Urine Bacteria 1+ Urine Mucus 0 SEEN Urine Test - Medical Decision Making Patient is a 44-year-old female presenting with worsening headache and sinus pain. She is had multiple ER dose visits as well as 2 rounds of antibiotics for sinusitis. She states the pain is worsening and she cannot take it anymore. Patient does have some photophobia of her left eye but otherwise has a normal neurologic exam. She does also have a history of migraine headaches but she feels that this is different than her typical headaches. On initial arrival patient is mildly tachycardic but she is also quite anxious. Patient has a normal white blood cell count as well as a normal CBC and grossly normal CMP. She states she been feeling dizzy and I did check troponin as well as EKG. These are also grossly normal., This is also normal. Urinalysis is not consistent with infection and urine is negative. CT of the brain does not show any acute intracranial process. CT of the sinuses does show si gnificant sinusitis especially of the right maxillary sinus and ethmoid sinusitis with occlusion of the right ostial medial complex. This is consistent with patient's presentation. She will be placed back on Augmentin as well as a Medrol Dosepak to help with her symptoms. In the ER she is given Compazine and Benadryl and then Toradol once her CT brain returned negative. On reevaluation she is feeling much better. I think she stable for outpatient follow-up. Patient is counseled on signs and symptoms requiring return to the emergency room. Patient verbalizes agreement and understand this plan. Patient discharged home in stable and improved condition. ED Disposition - Plan for ED Patient: Disposition: Home or Assisted Living Diagnosis: Sinusitis Instructions: Sinus Headache, SINUSITIS, Abx Tx Prescriptions: Amoxicillin/Potassium Clav [Augmentin 875-125 Tablet] 1 ea PO BID #20 tab Prescription Printed MethylPREDNISolone DosePak [Medrol DosePak] 4 mg PO UD #1 box Prescription Printed Referrals: Deny Link NP-C [Primary Care Provider] - Additional Instructions: Your CT does show sinusitis. You will be placed on steroids as well as another course of antibiotics. Is reportedly follow-up with ENT. Drink plenty of fluids. Continue taking decongestants and using Flonase. Take ibuprofen as needed for pain.
[2019-04-22] MEDS: Ondansetron 4 MG/2 ML Vial IV (19:11)
[2019-04-22] MEDS: 0.9% Normal Saline 1,000 ML 1000 ML IV (19:11)
[2019-04-22] MEDS: proCHLORPERazine 10 MG/2 ML Vial IV (19:12)
[2019-04-22] MEDS: DiphenhydrAMINE 50 MG/ML Syringe 25 MG IV (19:12)
[2019-04-22 19:22] VITALS: BP 106/79; BP 115/79; BP 118/82; PULSE 87; PULSE 90; PULSE 91
[2019-04-22 19:41] LABS: Mucous, Urine 0 SEEN /hpf (<or=2+)
[2019-04-22 19:42] LABS: Color, Urine Yellow (Yellow); Glucose, Dipstick Normal (Normal); Ketone-Dipstick Negative (Negative); Leukocyte Esterase-Dipstick 25 /ul (Negative); Nitrite-Dipstick Negative (Negative); Occult Blood-Urine Negative /ul (Negative); Protein-Dipstick Negative (Negative); Urine Bilirubin Dipstick Negative (Negative); Urine Clarity Clear (Clear); Urine Urobilinogen Normal (Normal)
[2019-04-22 19:45] LABS: Internal QC Validated? YES +Cl - CLEAR BKGD
[2019-04-22 19:46] LABS: Pregnancy, Urine Negative Negative
[2019-04-22 19:47] LABS: Basophil# 0.06 X10^3/uL; Basophil% 0.7 % (0-1); Eosinophil# 0.14 X10^3/uL; Eosinophils% 1.6 % (0-5); Hematocrit 45.1 % (37-47); Hemoglobin 14.8 g/dL (12.0-15.0); Lymphocyte % 36.6 % (19-41); Mean Corp Hgb Conc 32.8 g/dL (32-36); Mean Corpuscular Hgb 30.5 pg (27.0-32.0); Mean Platelet Vol. 9.6 fl (6.2-12.0); Monocyte# 0.47 X10^3/uL; Monocyte% 5.2 % (0-10); NRBC Flagged by Analyzer 0 % (0-5); Neutrophil # 4.99 X10^3/uL (2.7-7.7); Neutrophil % 55.3 % (47-70); Platelet Count 267 K/mm3 (150-450); RBC Distribution Width CV 13.2 % (11.6-14.6); RBC Distribution Width SD 45.4 fl (35.1-43.9); Red Blood Count 4.85 M/mm3 (4.2-5.4)
[2019-04-22 19:57] LABS: Red Blood Cells-Urine 0-5 SEEN /hpf (0-5); Squamous Epithelial Cells - UA 5-10 SEEN /hpf (5-10); White Blood Cells 0-5 SEEN /hpf (0-5)
[2019-04-22 19:58] LABS: Bacteria 1+ /hpf (None Seen)
[2019-04-22 20:23] LABS: ALB/GLOB Ratio 0.8 RATIO (0.9-2.4); AST(SGOT) 8 U/L (15-37); Alanine Aminotransfer ALT/SGPT 20 U/L (13-56); Albumin, Serum 3.3 g/dL (3.2-5.0); Alkaline Phosphatase 134 U/L (45-117); Anion Gap 6 (5-15); BUN 23 mg/dL (7-18); BUN/Creat Ratio 22.8 RATIO (10-20); Calcium,Total 9.1 mg/dL (8.5-10.1); Chloride 108 mmol/L (98-107); Creatinine, Serum 1.01 mg/dL (0.55-1.02); EST Glomerular Filtration Rate 63 mL/min (>60); Est Glom Filt Rate - Afr Amer 76 mL/min (>60); Estimated Creatinine Clearance 65.85 ml/min; Globulin 4.4 g/dL (2.2-4.2); Glucose 87 mg/dL (74-106); Lipase 39 U/L (73-393); Potassium 3.5 mmol/L (3.5-5.1); Protein, Total 7.7 g/dL (6.4-8.2); Sodium Level 139 mmol/L (136-145)
[2019-04-22] MEDS: Ketorolac 15 MG/ML Vial IV (21:15)
[2019-04-22 21:18] VITALS: BP 114/66; PULSE 72; RESP 16; O2SAT 96
--- NOTE | 2019-06-11 15:53 | CM.ED ---
SOCIAL WORK CALL TO PATIENT TO UPDATE ON APPROVED ED CARE PLAN. NO ANSWER, LEFT MESSAGE WITH THIS WORKER'S CALL BACK INFORMATION. COPY OF ED CARE PLAN AND RESOURCES MAILED TO PATIENT VIA CERTIFIED MAIL THIS DATE. CALL TO PATIENT'S PRIMARY CARE, VIANNEY ARREOLA, [facility]. SPOKE WITH NURSE, LIBORIO. UPDATED ON CARE PLAN. COPY OF CARE PLAN FAXED. Saad SALGADO MSW, ENGINE REPAIRER PRODUCTION.
--- NOTE | 2019-06-11 15:57 | CM.ED ---
SOCIAL WORK RECEIVED CALL BACK FROM PATIENT. PATIENT UPDATED ON ED CARE PLAN AND INFORMED COPY OF CARE PLAN HAS BEEN MAILED TO PATIENT THIS DAY. NO QUESTIONS AT THIS TIME. Saad SALGADO, [employer] ENGINEER, SEMICONDUCTOR PROCESSING GROUP LEADER.
== END 2019-04-22 22:20 | disposition home or self-care (01) ==
PROVIDERS: Emergency Provider Emergency Medicine; PCP Nurse Practitioner Family
DX: J32.0 Chronic maxillary sinusitis (principal); J32.2 Chronic ethmoidal sinusitis; R42 Dizziness and giddiness; R11.0 Nausea; G43.909 Migraine, unspecified, not intractable, without status migrainosus; F32.9 Major depressive disorder, single episode, unspecified; Z79.899 Other long term (current) drug therapy; Z87.891 Personal history of nicotine dependence
CPT/HCPCS: 70450; 70486; 80053; 81001; 81025; 83690; 84484; 85025; 96361; 96374; 96375; 99283; J7030; A4216; J2405

== ENCOUNTER 2019-04-30 07:22 | Day surgery (SDC) | payer BC, SELFPAY ==
[2019-04-30] VITALS (8 sets, daily range): BP systolic 117–124; BP diastolic 70–88; PULSE 81–86; RESP 14–16; TEMP 36.1–36.9; O2SAT 95–98; BMI 29.9
[2019-04-30] MEDS: Lactated Ringers 1,000 ML 100 ML IV (08:08)
--- NOTE | 2019-04-30 08:40 | RAD_ITS ---
PROCEDURE: Sympathetic plexus nerve block. DATE OF EXAMINATION: April 30, 2019. INDICATION: Female, 44 years old. Lower back pain. FLUOROSCOPY TIME (if supplied): (16 seconds) minutes/seconds. 3 coned down images were obtained. Intraoperative imaging provided for sympathetic plexus nerve block. RAD/Lumbar Spine 2 or 3 Views IMPRESSION: Intraoperative imaging provided for sympathetic plexus nerve block. Electronically Signed: Rene Ramirez, at 13:41 EST , Service support ,
[2019-04-30] MEDS: MethylPREDNISolone Acetate 80 MG/ML Vial (08:46)
[2019-04-30] MEDS: Bupivacaine 0.25% 30 ML Vial (08:46)
--- NOTE | 2019-04-30 14:13 | PCM.OPRPT ---
Report of Operation Date of Procedure: 04/30/19 Description of Surgical Findings:: PROCEDURE: Left-sided lumbar sympathetic plexus steroid injection under fluoroscopic guidance PREOPERATIVE DIAGNOSIS: Left lower extremity pain, sympathetically mediated pain, complex regional pain syndrome of the left lower extremity POSTOPERATIVE DIAGNOSIS: Left lower extremity pain, sympathetically mediated pain, complex regional pain syndrome of the left lower extremity ANESTHESIA: MAC COMPLICATIONS: None BLOOD LOSS: Minimal PROCEDURE IN DETAIL: History and physical today was reviewed. Risks and benefits of the procedure were explained. The patient understood, agreed to our procedure, and informed consent was obtained. IV inserted per routine protocol. The patient was taken to the operating room, placed in a prone position with a pillow positioned underneath the abdomen. The the left side of the lower back was prepped and draped in a sterile fashion using iodine x3 under fluoroscopy guidance and a oblique view of the L3-4 vertebral bodies were visualized the skin and subcutaneous tissue in size approximately 5 cc of 1% lidocaine using a 25-gauge regular needle at approximately 4 cm to the left of midline under direct visualization fluoroscopy using a 22-gauge 5 inch spinal needle the needle was advanced by the skin the tip of the knee was maneuvered and directed towards the superior superior most aspect of the transverse process at L3 level of the tip of the needle was then maneuver and directed more anterior to the body of L3-L4 on lateral view of the needle was then further advanced under direct visualization fluoroscopy on the lateral view one-step the needle was anterior to the L3 body after negative aspiration for blood or CSF a total of 2 cc of contrast were injected to confirm correct placement of the needle anterior to the L3-L4 vertebral body with cephalocaudad spread the confirmation was obtained in AP as well as lateral view after repeated negative aspiration confirmation a total of 10 cc of preservative-free 0.25% Marcaine with 80 mg of Depo-Medrol were injected easily, the needles were then removed intact. The patient experienced no signs or symptoms intrathecal, intravascular injection. The patient experienced no paraesthesia. The procedure was completed without any apparent difficult, any complication. The patient appeared to tolerate well. ASSESSMENT AND PLAN: This is a 44-year-old female with left lower extremity pain sympathetically mediated pain, complex regional pain syndrome of the left lower extremity status post left-sided lumbar sympathetic plexus steroid injection under fluoroscopic guidance. The patient will continue her current medications. The patient will follow in approximately 2 weeks for reevaluation.
== END 2019-04-30 09:41 | disposition home or self-care (01) ==
LOC: SDC 07:23 → AC 07:25
PROVIDERS: PCP Nurse Practitioner Family; Referring Provider Anesthesiology Pain Medicine; Visit Provider Anesthesiology Pain Medicine
PROC: 3E0S3BZ Introduction of Anesthetic Agent into Epidural Space, Percutaneous Approach (ICD-10-PCS; CPT 62322; principal; 2019-04-30 08:35)
DX: G90.522 Complex regional pain syndrome I of left lower limb (principal); M25.871 Other specified joint disorders, right ankle and foot; M25.512 Pain in left shoulder; M79.2 Neuralgia and neuritis, unspecified; K58.9 Irritable bowel syndrome, unspecified; J45.909 Unspecified asthma, uncomplicated; K21.9 Gastro-esophageal reflux disease without esophagitis; F31.9 Bipolar disorder, unspecified; F41.9 Anxiety disorder, unspecified; Z79.891 Long term (current) use of opiate analgesic; Z79.899 Other long term (current) drug therapy; Z87.891 Personal history of nicotine dependence
CPT/HCPCS: 64520; 77003; 64483; 72100; J7120

== ENCOUNTER 2019-10-16 19:36 | Emergency (ER) | payer SELFPAY ==
[2019-04-30 07:50] VITALS: BMI 29.9
[2019-10-16 19:37] VITALS: BP 145/86; PULSE 92; RESP 16; TEMP 36.8; O2SAT 96; BMI 26.1
[2019-10-16 20:21] VITALS: RESP 17
[2019-10-16] MEDS: Smz/Tmp Ds Tablet 1 TABLET PO (20:27)
[2019-10-16] MEDS: HYDROcodone Bitartrate/Apap 5/325 Tablet PO (20:27)
[2019-10-16] MEDS: Cephalexin 250 MG Capsule 500 MG PO (20:28)
--- NOTE | 2019-10-16 20:31 | ED.VIS.GEN ---
History of Present Illness Chief Complaint: Wound Informant: Patient Onset: Days Context: Gradual Onset Timing: Continuous Current Severity: Moderate Maximum Severity: Moderate Narrative: The patient is a 44-year-old female with no significant medical history the presents to the emergency department with cellulitis of the left fifth toe. The patient states that she has been on her feet for some time. She states that she was wearing ill fitting shoes. She states she developed a small blister on the dorsum of the left fifth foot. She states over the past 2 days, is gotten more painful. She has been trying to soak it. She denies any streaking. She denies any fevers or chills. Prior similar symptoms: No Recent Illness/Hospitalization: No Past Medical History - Allergies and Home Meds Allergies/Adverse Reactions: Allergies ciprofloxacin Allergy (Verified 10/16/19 19:39) Rash fremanezumab-vfrm [From Ajovy Syringe] Allergy (Verified 10/16/19 19:39) Rash gabapentin Allergy (Verified 10/16/19 19:39) Other Primary Care Physician: Deny Link, [facility] [Primary Care Provider] - Prior records reviewed: Yes Past Medical History: None Surgical History: noncontributory, - - I am not able to obtain information on the past surgeries from the patient due to her mental status change and confusion Smoking Status: Current some day smoker - Family History Maternal Family History: Reports: Unknown Paternal Family History: Reports: Unknown Review of Systems General: Denies: Chills, Fever, Sweats Eyes: Denies: Visual changes - bilaterally, Diplopia ENT: Denies: Rhinorrhea, Sore throat Cardiovascular: Denies: Chest pain, Palpitations Respiratory: Denies: Dyspnea, Cough, Dyspnea on exertion Gastrointestinal: Denies: Abdominal pain, Nausea, Vomiting, Diarrhea, Melena, Hematochezia Genitourinary: Denies: Dysuria, Hematuria, Frequency Musculoskeletal: Denies: Back pain, Extremity Pain Skin: Denies: Rash, Wounds Neurological: Denies: Headache, Weakness, Numbness Physical Exam Vital Signs/Narrative: Vital Signs Temp Pulse Resp BP Pulse Ox 10/16/19 20:21 17 10/16/19 19:37 98.2 F 92 16 145/86 H 96 Inital Vital Signs reviewed: Yes General: Well nourished, Well developed, No Acute Distress Head: Normocephalic, Atraumatic Eyes: Perrl, EOMI ENT: Moist mucous membranes, No rhinorrhea Neck: Supple, Nontender Cardiovascular: Regular rate, Regular rhythm, No murmurs Respiratory: No distress, CTA bilaterally, Chest nontender Abdomen: Soft, Nontender, Nondistended, Normal bowel sounds Back: Nontender, Normal Inspection Extremities: No edema, Tenderness - Patient has a 0.5 cm ovoid area of blister on the dorsal lateral aspect of the left fifth toe. There is some mild erythema of the wound edges. There is no streaking. Her pulses are normal. Skin: Normal color, No rash Neurological: Alert, Oriented x3, Cranial nerves II-XII grossly intact, Normal Strength, Normal Sensation Psychological: Normal affect, Normal Mood Diagnostic/Tx/Re-eval - Medical Decision Making The patient has local eye cellulitis of the left fifth toe without abscess. It is been going on for 2 days. I do not suspect osteomyelitis or other dangerous process. She has had no significant trauma. I am going to treat the patient with Bactrim and Keflex. She will given a short course of analgesics and a postoperative shoe. She will be given outpatient podiatry follow-up. 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 She is comfortable with this plan of care. Impression 1. Left fifth toe cellulitis ED Disposition - Plan for ED Patient: Instructions: ED Cellulitis Prescriptions: Smz/Tmp Ds [Bactrim Ds] 1 tab PO BID #14 tab Prescription Printed Cephalexin [Keflex] 500 mg PO Q6 #40 cap Prescription Printed Hydrocodone Bitart/Apap 5-325 [[place] 5MG-325MG] 1 tab PO Q6H PRN PRN 3 Days #10 tab PRN Reason: Pain Prescription Printed Referrals: Deny Link, [facility] [Primary Care Provider] -
== END 2019-10-16 21:40 | disposition home or self-care (01) ==
LOC: ED 20:39
PROVIDERS: Emergency Provider Emergency Medicine; PCP Nurse Practitioner Family
DX: L03.032 Cellulitis of left toe (principal); F17.200 Nicotine dependence, unspecified, uncomplicated
CPT/HCPCS: 99284

== ENCOUNTER 2019-11-05 10:13 | Emergency (ER) | payer SELFPAY ==
[2019-11-05 10:13] VITALS: BP 142/84; PULSE 102; RESP 18; TEMP 36.8; O2SAT 97; BMI 27.2
[2019-11-05 10:47] VITALS: BP 142/84; PULSE 102; RESP 18; TEMP 36.8; O2SAT 97
[2019-11-05 10:47] LABS: Absolute Lymphocyte Count 2.81 X10^3/uL (0.83-4.51); Absolute Neutrophil Count 6.3 X10^3/uL (2.0-7.7); Basophil# 0.06 X10^3/uL; Basophil% 0.6 % (0-1); Eosinophil# 0.15 X10^3/uL; Eosinophils% 1.5 % (0-5); Hematocrit 35.1 % (37-47); Hemoglobin 11.5 g/dL (12.0-15.0); Lymphocyte # 2.81 X10^3/ul (4.0); Lymphocyte % 28.7 % (19-41); Mean Corp Hgb Conc 32.8 g/dL (32-36); Mean Corpuscular Hgb 31.2 pg (27.0-32.0); Mean Corpuscular Volume 95.1 fL (81-99); Mean Platelet Vol. 9.1 fl (6.2-12.0); Monocyte# 0.38 X10^3/uL; Monocyte% 3.9 % (0-10); NRBC Flagged by Analyzer 0 % (0-5); Neutrophil % 64.5 % (47-70); Platelet Count 227 K/mm3 (150-450); RBC Distribution Width CV 13.5 % (11.6-14.6); RBC Distribution Width SD 47.2 fl (35.1-43.9); Red Blood Count 3.69 M/mm3 (4.2-5.4); White Blood Count 9.8 K/mm3 (4.4-11.0)
--- NOTE | 2019-11-05 10:48 | RAD_ITS ---
STUDY: X-RAY LEFT FOOT, FIFTH TOE REASON FOR EXAM: Female, 44 years old. CELLULITIS TO LEFT 5TH DIGIT. TREATED FOR SAME DEVIOUSLY, NO RELIEF. TECHNIQUE: 3 view(s) of the toe were obtained. COMPARISON: Comparison is made with prior examination dated 08/05/2018. FINDINGS: Normal visualized metatarsus. Normal metatarsophalangeal (M.T.P) joint. Normal interphalangeal joints. Normal phalanges and interphalangeal joints. Soft tissue swelling. Prior screw fixation of the distal portion of the second metatarsal head as well as partial resection of the distal portion of the proximal phalanx of the second toe. RAD/Toe(s) Min 2 Views IMPRESSION: Soft tissue changes. Electronically Signed: Rene Ramirez, at 11:19 EDT , Service support ,
--- NOTE | 2019-11-05 12:06 | ED.VIS.GEN ---
History of Present Illness Chief Complaint: Cellulitis Detail of Chief Complaint: Pain and redness left little toe Informant: Patient Onset: Days Context: Sudden Onset Timing: Continuous Quality: Pain Location: Left little toe Current Severity: Mild Maximum Severity: Moderate Worsened by: Shoe Relieved by: Nothing Associated Symptoms: Prior history of cellulitis otherwise negative Narrative: Patient is a 44-year-old woman who was treated with cephalexin and Bactrim for presumed cellulitis left little toe. She completed last dose of antibiotic last Tuesday. Patient denies fever, chills night sweats. She reports pain and swelling of the right little toe with redness. She denies drainage. There is a callus noted. She states she purchased new shoes. Prior similar symptoms: Yes Recent Illness/Hospitalization: Yes - Past Medical History (1) Left foot pain Status: Chronic Past Medical History - Allergies and Home Meds Allergies/Adverse Reactions: Allergies ciprofloxacin Allergy (Verified 11/05/19 10:15) Rash fremanezumab-vfrm [From Ajovy Syringe] Allergy (Verified 11/05/19 10:15) Rash gabapentin Allergy (Verified 11/05/19 10:15) Other Primary Care Physician: Deny Link, VIGOUREUX PRINTER-C [Primary Care Provider] - Prior records reviewed: Yes Surgical History: noncontributory, - - I am not able to obtain information on the past surgeries from the patient due to her mental status change and confusion Lives: Alone Smoking Status: Current some day smoker Alcohol: Rare Drugs: None - Family History Maternal Family History: Reports: Unknown Paternal Family History: Reports: Unknown Review of Systems General: Denies: Chills, Fever, Malaise, Subjective, Sweats Cardiovascular: Denies: Chest pain, Palpitations Respiratory: Denies: Dyspnea, Cough, Dyspnea on exertion Musculoskeletal: Reports: Swelling, Extremity Pain. Denies: Myalgias, Arthralgias, Neck pain, Back pain Skin: Reports: Rash, Abscess, Wounds. Denies: Abrasions Neurological: Denies: Weakness, Parasthesia, Numbness Endocrine: Denies: Polyuria, Polydipsia Hematologic: Denies: Easy bruising, Easy bleeding Physical Exam Vital Signs/Narrative: Vital Signs Temp Pulse Resp BP Pulse Ox 11/05/19 10:47 98.2 F 102 H 18 142/84 H 97 11/05/19 10:13 98.2 F 102 H 18 142/84 H 97 Inital Vital Signs reviewed: Yes General: Well nourished, Well developed, No Acute Distress Head: Normocephalic, Atraumatic Eyes: Perrl, EOMI. Negative for: Pale conjunctiva, Scleral icterus ENT: Moist mucous membranes, No rhinorrhea Neck: Supple, Nontender Cardiovascular: Regular rate, Regular rhythm, No murmurs Respiratory: No distress, CTA bilaterally Extremities: No edema, Tenderness - Tenderness with swelling of the left little toe. There is erythema. There is slight warmth. There is no induration, lymphangitis or fluctuance. Skin: Normal color, No Trauma, Rash. Negative for: Cyanosis, Diaphoresis, Jaundice Neurological: Alert, Oriented x3, Cranial nerves II-XII grossly intact, Normal Strength, Normal Sensation Psychological: Normal affect, Normal Mood Diagnostic/Tx/Re-eval Impressions Toe X-Ray 11/05/19 10:48 IMPRESSION: Soft tissue changes. Electronically Signed: Rene Ramirez, at 11:19 EDT , Service support , 11/05/19 10:48 Toe(s) Min 2 Views [RAD] Stat Laboratory Results 11/05/19 10:40 WBC 9.8 RBC 3.69 L Hgb 11.5 L Hct 35.1 L MCV 95.1 MCH 31.2 MCHC 32.8 RDW Std Deviation 47.2 H RDW Coeff of [place] 13.5 Plt Count 227 MPV 9.1 Immature Gran % (Auto) 0.800 Neut % (Auto) 64.5 Lymph % (Auto) 28.7 [place] % (Auto) 3.9 Eos % (Auto) 1.5 Baso % (Auto) 0.6 Absolute Neuts (auto) 6.3 Absolute Lymphs (auto) 2.81 Nucleated RBC % 0 Was read by radiologist prior to my review. There is soft tissue swelling. There is no subcutaneous air. There is no evidence of osteomyelitis. - Medical Decision Making X-ray was obtained to determine if evidence of osteomyelitis. There is no evidence of osteomyelitis. Treat with antibiotics. Patient states she presently does not have insurance. Therefore, she was [facility]. She was discharged with a postop shoe as well. ED Disposition - Plan for ED Patient: Disposition: Home or Assisted Living Diagnosis: Cellulitis of toe of left foot Instructions: Cellulitis Prescriptions: Doxycycline 100 mg PO BID #14 cap Transmission Status: Pending to [id number] Referrals: Deny Link, VIGOUREUX PRINTER-C [Primary Care Provider] - Codie Pearson [NON-STAFF] - 2 Days for wound check
== END 2019-11-05 12:29 | disposition home or self-care (01) ==
PROVIDERS: Emergency Provider Emergency Medicine; PCP Nurse Practitioner Family
DX: L03.032 Cellulitis of left toe (principal); F17.200 Nicotine dependence, unspecified, uncomplicated
CPT/HCPCS: 36415; 73660; 85025; 99283

== ENCOUNTER 2020-03-13 07:54 | Emergency (ER) | payer SELFPAY ==
[2020-03-13 07:55] VITALS: BP 151/93; PULSE 101; RESP 16; TEMP 36.9; O2SAT 100; BMI 26.9
--- NOTE | 2020-03-13 08:11 | ED.VIS.GEN ---
History of Present Illness Chief Complaint: General Illness Narrative: Patient presenting for evaluation secondary to generalized illness. Patient reports that she has been dealing with sinus type symptoms over the course of about the last 4 days. These been associated with congestion and mild headaches. Today the patient states that she is dealing with generalized malaise, body aches, extreme fatigue, and she has had 3 episodes of nonbloody nonbilious emesis. Patient does endorse that she has had a mild cough with this, this is nonproductive. No diarrhea. No shortness of breath. Patient does have a underlying history of well-controlled asthma. She denies any other comorbid conditions. She denies any sick contacts. Patient reports that she took Phenergan today as well as ibuprofen and it did not seem to be alleviating her symptoms. Review of systems otherwise negative. Past Medical History - Allergies and Home Meds Allergies/Adverse Reactions: Allergies ciprofloxacin Allergy (Verified 03/13/20 07:59) Rash fremanezumab-vfrm [From Ajovy Syringe] Allergy (Verified 03/13/20 07:59) Rash gabapentin Allergy (Verified 03/13/20 07:59) Other Primary Care Physician: Deny Link YEAST CAKE CUTTER, YEAST CAKE CUTTER-C [Primary Care Provider] - Prior records reviewed: Yes Past Medical History: - - Asthma Surgical History: noncontributory, - - I am not able to obtain information on the past surgeries from the patient due to her mental status change and confusion Lives: Alone Smoking Status: Current some day smoker Alcohol: None Drugs: None - Family History Maternal Family History: Reports: Unknown Paternal Family History: Reports: Unknown Review of Systems All systems negative except as indicated General: Reports: Malaise Eyes: Denies: Visual changes - bilaterally, Diplopia ENT: Reports: Rhinorrhea. Denies: Sore throat Cardiovascular: Denies: Chest pain, Palpitations Respiratory: Reports: Cough. Denies: Dyspnea Gastrointestinal: Reports: Nausea, Vomiting Genitourinary: Denies: Dysuria, Hematuria, Frequency Musculoskeletal: Denies: Back pain, Extremity Pain Skin: Denies: Rash, Wounds Neurological: Denies: Headache, Weakness, Numbness Physical Exam Vital Signs/Narrative: Vital Signs Temp Pulse Resp BP Pulse Ox 03/13/20 07:55 98.5 F 101 H 16 151/93 H 100 Inital Vital Signs reviewed: Yes General: Well nourished, Well developed, No Acute Distress Head: Normocephalic, Atraumatic Eyes: Perrl, EOMI ENT: Moist mucous membranes, No rhinorrhea Neck: Supple, Nontender Cardiovascular: Regular rate, Regular rhythm, No murmurs Respiratory: No distress, CTA bilaterally, Chest nontender Abdomen: Soft, Nontender, Nondistended, Normal bowel sounds Back: Nontender, Normal Inspection Extremities: Nontender, No edema Skin: Normal color, No rash Neurological: Alert, Oriented x3, Cranial nerves II-XII grossly intact, Normal Strength, Normal Sensation Psychological: Normal affect, Normal Mood Diagnostic/Tx/Re-eval - Medical Decision Making Patient presenting for evaluation secondary to generalized illness. Patient has stable vital signs, no signs of hypoxia. Physical exam is benign the patient is well hydrated. I do not feel that IV or blood laboratories are indicated. Likewise she has clear sounding lungs and normal oxygenation there is no indication for chest x-ray. Patient likely has an element of a viral illness, coronavirus is within the differential. This will be tested. Patient will be treated with a dose of Toradol and Zofran in the emergency department. She will be discharged with a course of Zofran to ensure hydration. She was given expectant management instructions, and will follow up on her coronavirus test as an outpatient. ED Disposition - Plan for ED Patient: Diagnosis: Viral illness Instructions: Coronavirus Disease 2019 (COVID-19): Overview, ED Viral Syndrome (Adult) Prescriptions: Ondansetron [Zofran Odt] 4 mg PO Q8H PRN PRN #10 tab PRN Reason: Nausea Transmission Status: Pending to [id number] Referrals: Deny Link YEAST CAKE CUTTER, YEAST CAKE CUTTER-C [Primary Care Provider] - 1 Week if not improving
[2020-03-13] MEDS: Ondansetron ODT 4 MG Tablet PO (08:21)
[2020-03-13] MEDS: Ketorolac 15 MG/ML Vial IM (08:21)
[2020-03-13 08:28] VITALS: PULSE 99; O2SAT 100
== END 2020-03-13 08:36 | disposition home or self-care (01) ==
LOC: ED 08:30
PROVIDERS: Emergency Provider Emergency Medicine; PCP Nurse Practitioner Family
DX: B34.9 Viral infection, unspecified (principal); Z20.828 Contact with and (suspected) exposure to other viral communicable diseases; R11.2 Nausea with vomiting, unspecified; J34.89 Other specified disorders of nose and nasal sinuses; R05 Cough; R51.9 Headache, unspecified; R41.82 Altered mental status, unspecified; J45.909 Unspecified asthma, uncomplicated; F17.200 Nicotine dependence, unspecified, uncomplicated; Z79.899 Other long term (current) drug therapy
CPT/HCPCS: 87635; 96372; 99283; U0003

== ENCOUNTER 2020-04-29 08:15 | Emergency (ER) | payer SELFPAY ==
[2020-04-29 08:16] VITALS: BP 151/82; PULSE 102; RESP 16; TEMP 36; O2SAT 97; BMI 28.5
--- NOTE | 2020-04-29 08:41 | RAD_ITS ---
STUDY: X-RAY CHEST REASON FOR EXAM: Female, 45 years old. Sinus congestion x 1 month -- SOB x 3 weeks TECHNIQUE: Single AP portable view of the chest. COMPARISON: Comparison is made with prior examination dated 01/06/2012. FINDINGS: The lungs are clear and expanded. There is no demonstrated pleural abnormality. Normal size heart. Normal mediastinum and carola. Normal visualized pulmonary arteries. Normal visualized aortic arch and descending thoracic aorta. Normal visualized thoracic spine. Healed right rib fracture. There is no demonstrated abnormality of the visualized soft tissue structures of the upper abdomen. RAD/Chest 1 View (Portable) IMPRESSION: No acute abnormality is seen. Electronically Signed: Rene Ramirez MD at 9:23 EST , Service support ,
--- NOTE | 2020-04-29 08:41 | ED.VIS.GEN ---
History of Present Illness Chief Complaint: Shortness of Breath Informant: Patient Onset: Weeks Context: Gradual Onset Current Severity: Moderate Maximum Severity: Moderate Narrative: Patient presents with sinus pressure and drainage for the past 3+ weeks. She states there was 1 day 2 weeks ago that she had fever overnight but none since. She describes yellow to green nasal discharge with some blood. She states when she bends over she gets pressure through her maxillary sinuses. She has had history of deviated septum and frequent sinus infections that feel similar. She also reports some increased shortness of breath that she believes is secondary to sinus drainage. She has had to use her albuterol inhaler more today than normal. - Past Medical History (1) GERD (gastroesophageal reflux disease) Status: Chronic (2) Anxiety and depression Status: Chronic Past Medical History - Allergies and Home Meds Allergies/Adverse Reactions: Allergies ciprofloxacin Allergy (Verified 04/29/20 08:54) Rash fremanezumab-vfrm [From Ajovy Syringe] Allergy (Verified 04/29/20 08:54) Rash gabapentin Allergy (Verified 04/29/20 08:54) Other Primary Care Physician: Deny Link BUSINESS MACHINE OPERATOR, BUSINESS MACHINE OPERATOR-C [Primary Care Provider] - 1 Week if not improving Surgical History: noncontributory, - - I am not able to obtain information on the past surgeries from the patient due to her mental status change and confusion Smoking Status: Current some day smoker - Family History Maternal Family History: Reports: Unknown Paternal Family History: Reports: Unknown Review of Systems General: Reports: Fever - Weeks ago. Denies: Chills Eyes: Denies: Visual changes - bilaterally ENT: Reports: - - Facial/sinus pressure Cardiovascular: Denies: Chest pain Respiratory: Reports: Dyspnea, Cough Gastrointestinal: Denies: Abdominal pain, Nausea, Vomiting, Diarrhea Genitourinary: Denies: Dysuria Musculoskeletal: Denies: Swelling, Extremity Pain Skin: Denies: Rash Neurological: Reports: Headache Hematologic: Denies: Easy bruising, Easy bleeding Allergy: Denies: Uticaria Physical Exam Vital Signs/Narrative: Vital Signs Temp Pulse Resp BP Pulse Ox 04/29/20 08:16 96.8 F L 102 H 16 151/82 H 97 Inital Vital Signs reviewed: Yes General: Well nourished, Well developed Head: Normocephalic ENT: Moist mucous membranes Neck: Supple Cardiovascular: Regular rate, Regular rhythm Respiratory: No distress, CTA bilaterally Abdomen: Soft, Nontender Extremities: Nontender Skin: Normal color Neurological: Alert, Oriented x3 Psychological: Normal affect Diagnostic/Tx/Re-eval Chest X-Ray - ED: 1 View, Read by ED Physician, Normal, Heart, Lungs, Mediastinum - Medical Decision Making Patient presents with symptoms consistent with sinusitis. She is given a dose of Augmentin here along with a dose of tramadol. Portable chest x-ray per my interpretation shows no infiltrate. Patient will be given a course of Augmentin for home and given a work note that she may return. ED Disposition - Plan for ED Patient: Disposition: Home or Assisted Living Diagnosis: Sinusitis Instructions: ED Sinusitis (Antibiotic Treatment) Prescriptions: Amox/Clavulanate Tablet [Augmentin Tablet] 875 mg PO Q12H #20 tab Transmission Status: Pending to [id number] Referrals: Deny Link NP, BUSINESS MACHINE OPERATOR-C [Primary Care Provider] - 1 Week if not improving
[2020-04-29] MEDS: traMADol 50 MG Tablet PO (08:51)
[2020-04-29] MEDS: Amox/Clavulanate 875 MG Tablet PO (08:51)
[2020-04-29 08:52] VITALS: O2SAT 97
[2020-04-29 09:31] VITALS: BP 123/74; PULSE 62; RESP 15; O2SAT 98
== END 2020-04-29 09:32 | disposition home or self-care (01) ==
PROVIDERS: Emergency Provider Emergency Medicine; PCP Nurse Practitioner Family
DX: J32.9 Chronic sinusitis, unspecified (principal); K21.9 Gastro-esophageal reflux disease without esophagitis; R41.0 Disorientation, unspecified; F32.9 Major depressive disorder, single episode, unspecified; F41.9 Anxiety disorder, unspecified; F17.200 Nicotine dependence, unspecified, uncomplicated; Z79.899 Other long term (current) drug therapy
CPT/HCPCS: 71045; 99283

== ENCOUNTER 2020-06-30 07:20 | Emergency (ER) | payer SELFPAY ==
[2020-06-30 07:21] VITALS: BP 151/81; PULSE 101; RESP 16; TEMP 36.8; O2SAT 100; BMI 29.1
--- NOTE | 2020-06-30 07:33 | ED.DCSUM_ITS ---
- ER Visit Summary Date of Service: 06/30/20 Chief Complaint: Headache History of Present Illness: The patient is a 45 F who sees Fransico Morales. She reports that she has a headache that began 3 days ago. Is gradually gotten worse. Is a sharp, throbbing pain to her forehead and posterior to her eyes. Is 10 out of 10 at worst and 8 of 10 currently. Is worsened by nothing. It is also relieved by nothing. She took Imitrex without relief. Patient denies any change in her vision. She does complain of photophobia. She has been nauseated and vomited twice. No blood in her emesis. Patient denies fever or chills. She does report that she has had a cough for the past 2 days that is productive yellow sputum without blood. She feels mildly short of breath. She has had multiple episodes of diarrhea. No blood in her stools or black tarry stools. Patient questions whether she may have had exposure to Covid at work. She does wear a mask. She has not been vaccinated. Physical Examination: Vitals: Stable. Afebrile. General: Well-nourished and well-developed. Head: Normocephalic atraumatic. Neck: Supple, no lymphadenopathy. No JVD. Nontender. Cardiovascular: Regular rate and rhythm. No murmurs. Respiratory: No respiratory distress. Clear to auscultation bilaterally. Abdominal: Soft, nontender, nondistended, normal bowel sounds. No guarding, rebound, or peritoneal signs. Back: Nontender. Extremities: Nontender, no edema. Skin: Normal color, no rash. Neurologic: Alert and oriented ?3. Cranial nerves II through XII are intact. Normal strength and sensation. Psych: Normal affect. Test Results: Covid test is negative. Clinical Impression(s) from Imaging Studies Chest X-Ray 06/30/20 08:00 IMPRESSION: No acute findings in the chest and unchanged since 04/29/2020. Electronically Signed: Serafin Bernal MD at 8:14 EDT , Service support , Emergency Department Course and Treatment: Patient had an IV placed. She is given a liter normal saline. She is given Toradol, Benadryl, and Reglan IV. She is resting more comfortably. Treatment Plan: Patient will be discharged with symptomatic care. Push fluids. Use Tylenol and/or ibuprofen for headache. She is given prescription for Reglan. Follow-up with her primary care physician 1 to 2 days if not improving. Return to the emergency department for any worsening symptoms. Disposition: To home in improved and stable condition. Impression: 1. Cephalgia. 2. URI. This note was generated with [employer] dictation software. It may contain incorrect words, spelling, and punctuation that were not noted in review of the chart prior to signing ED Disposition - Plan for ED Patient: Instructions: ED Headache Unspecified, ED URI, Viral, No Abx (Adult) Prescriptions: Metoclopramide [Reglan] 10 mg PO 4X/DAY PRN #20 tablet PRN Reason: Headache Referrals: Deny Link [employer]AD[facility], [facility] [facility] [employer] [Primary Care Provider] - 1-2 Days if not improving
[2020-06-30] MEDS: 0.9% Normal Saline 1,000 ML 999 ML IV (07:53)
[2020-06-30] MEDS: DiphenhydrAMINE 50 MG/ML Syringe IV (07:54)
[2020-06-30] MEDS: Metoclopramide 10 MG/2 ML Vial IV (07:54)
[2020-06-30] MEDS: Ketorolac 15 MG/ML Vial IV (07:54)
--- NOTE | 2020-06-30 08:00 | RAD_ITS ---
EXAM: XR CHEST, 1 VIEW CLINICAL INDICATION: Cough TECHNIQUE: Frontal view of the chest. This report was created using [employer] report generation technology. COMPARISON: 04/29/2020. FINDINGS: LUNGS AND PLEURAL SPACES: Unremarkable. No consolidation or edema. No pneumothorax. No effusion. HEART: Unremarkable. Cardiac silhouette not enlarged. MEDIASTINUM: Central airways and mediastinal contour are unremarkable. BONES/JOINTS: Old fractures of the right posterior fourth and sixth ribs. SOFT TISSUES: Unremarkable. RAD/Chest 1 View (Portable) IMPRESSION: No acute findings in the chest and unchanged since 04/29/2020. Electronically Signed: Serafin Bernal MD at 8:14 EDT , Service support ,
[2020-06-30 08:52] VITALS: BP 121/69; PULSE 72; RESP 15; O2SAT 98
== END 2020-06-30 08:54 | disposition home or self-care (01) ==
LOC: ED 08:29
PROVIDERS: Emergency Provider Emergency Medicine; PCP Nurse Practitioner Family
DX: R51.9 Headache, unspecified (principal); J06.9 Acute upper respiratory infection, unspecified; J45.909 Unspecified asthma, uncomplicated; Z20.822 Contact with and (suspected) exposure to COVID-19; R11.2 Nausea with vomiting, unspecified; R19.7 Diarrhea, unspecified; Z72.0 Tobacco use; Z79.899 Other long term (current) drug therapy
CPT/HCPCS: 71045; 87426; 96374; 96375; 99283; J7030

== ENCOUNTER 2020-11-13 22:15 | Emergency (ER) | payer MEDICAID, SELFPAY ==
[2020-11-13 22:15] VITALS: BP 132/93; PULSE 106; RESP 26; TEMP 2.7; TEMP 36.8; O2SAT 97; BMI 29.0
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
[2020-11-13] MEDS: Ibuprofen 600 MG Tablet PO (23:38)
[2020-11-14] MEDS: Ondansetron ODT 4 MG Tablet 8 MG PO (01:00)
== END 2020-11-14 01:52 | disposition home or self-care (01) ==
PROVIDERS: Emergency Provider Emergency Medicine; PCP Nurse Practitioner Family
DX: S09.90XA Unspecified injury of head, initial encounter (principal); S50.12XA Contusion of left forearm, initial encounter; S50.11XA Contusion of right forearm, initial encounter; S80.212A Abrasion, left knee, initial encounter; S80.211A Abrasion, right knee, initial encounter; Y04.8XXA Assault by other bodily force, initial encounter; T76.21XA Adult sexual abuse, suspected, initial encounter; Y93.9 Activity, unspecified; Y92.039 Unspecified place in apartment as the place of occurrence of the external cause; Y99.9 Unspecified external cause status; R11.0 Nausea; G47.00 Insomnia, unspecified; J45.909 Unspecified asthma, uncomplicated; K21.9 Gastro-esophageal reflux disease without esophagitis; F32.9 Major depressive disorder, single episode, unspecified; F41.9 Anxiety disorder, unspecified; F17.210 Nicotine dependence, cigarettes, uncomplicated; Z79.51 Long term (current) use of inhaled steroids; Z79.899 Other long term (current) drug therapy
CPT/HCPCS: 70450; 99283

== ENCOUNTER → 2020-12-09 08:12 | Outpatient (CLI) | payer MEDICAID, SELFPAY ==
[2020-12-09 09:46] LABS: HIV - WCH Non-Reactive (Nonreactive); Hepatitis C Antibody Non-Reactive (Nonreactive); Syphilis Antibodies Non-reactive
[2020-12-10 20:40] LABS: Hepatitis Be Ab Negative (Negative)
== END ==
PROVIDERS: PCP Nurse Practitioner Family; Referring Provider Physician Assistant Surgical; Visit Provider Nurse Practitioner Family
DX: Z20.822 Contact with and (suspected) exposure to COVID-19 (principal); T74.21XA Adult sexual abuse, confirmed, initial encounter; Z20.2 Contact with and (suspected) exposure to infections with a predominantly sexual mode of transmission; Z13.1 Encounter for screening for diabetes mellitus; Z13.220 Encounter for screening for lipoid disorders; E55.9 Vitamin D deficiency, unspecified
CPT/HCPCS: 36415; 86703; 86707; 86780; 86803; 87635; U0005; U0003

== ENCOUNTER → 2020-12-18 | Outpatient (CLI) | payer MEDICAID, SELFPAY | END | disposition home or self-care (01) | LOC: LABSPEC 12-19 10:53 | PROVIDERS: PCP Nurse Practitioner Family; Visit Provider Physician Assistant | DX: R09.81 Nasal congestion (principal) | CPT/HCPCS: 87635; U0005; U0003 ==

== ENCOUNTER 2021-03-09 17:56 | Emergency (ER) | payer MEDICAID, SELFPAY ==
[2021-03-09 17:57] VITALS: BP 154/95; PULSE 98; RESP 16; TEMP 35.6; O2SAT 98; BMI 30.4
== END 2021-03-09 18:35 | disposition left against medical advice (07) ==
LOC: ED 19:43
PROVIDERS: PCP Nurse Practitioner Family
DX: L08.9 Local infection of the skin and subcutaneous tissue, unspecified (principal); R21 Rash and other nonspecific skin eruption; Z53.21 Procedure and treatment not carried out due to patient leaving prior to being seen by health care provider

== ENCOUNTER 2021-04-09 08:50 | Outpatient (CLI) | payer MEDICAID, SELFPAY ==
[2021-04-09 10:50] LABS: Vitamin D,25 Hydroxy 21.5 ng/mL
[2021-04-09 10:59] LABS: AST(SGOT) 13 U/L (15-37); Alanine Aminotransfer ALT/SGPT 29 U/L (13-56); Alkaline Phosphatase 107 U/L (45-117); Anion Gap 8 (5-15); BUN 22 mg/dL (7-18); BUN/Creat Ratio 25.8 RATIO (10-20); Calcium,Total 9.2 mg/dL (8.5-10.1); Chloride 99 mmol/L (98-107); Cholesterol 232 mg/dL (200); Creatinine, Serum 0.85 mg/dL (0.55-1.02); EST Glomerular Filtration Rate 76 mL/min (>60); Est Glom Filt Rate - Afr Amer 92 mL/min (>60); Globulin 4.1 g/dL (2.2-4.2); Glucose 86 mg/dL (74-106); High Density Lipoprotein 93 mg/dL; Potassium 3.4 mmol/L (3.5-5.1); Protein, Total 8.1 g/dL (6.4-8.2); Sodium Level 140 mmol/L (136-145); Triglycerides 138 mg/dL; Very Low Density Lipoprotein 28 mg/dL (5-40)
== END 2021-04-09 23:59 | disposition short-term general hospital (02) ==
LOC: LAB 08:52
PROVIDERS: PCP Nurse Practitioner Family; Visit Provider Nurse Practitioner Family
DX: Z13.1 Encounter for screening for diabetes mellitus (principal); Z13.220 Encounter for screening for lipoid disorders; E55.9 Vitamin D deficiency, unspecified
CPT/HCPCS: 36415; 80053; 80061; 82306

== ENCOUNTER 2021-07-20 21:14 | Emergency (ER) | payer MEDICAID, SELFPAY ==
[2021-07-20 21:15] VITALS: BP 134/72; PULSE 82; RESP 16; TEMP 36.2; O2SAT 97; BMI 29.7
[2021-07-20 21:36] LABS: Bacteria 0 SEEN /hpf (None Seen); Mucous, Urine 0 SEEN /hpf (<or=2+); Squamous Epithelial Cells - UA 0 SEEN /hpf (5-10)
[2021-07-20 21:37] LABS: Color, Urine Amber (Yellow); Glucose, Dipstick Normal (Normal); Ketone-Dipstick Negative (Negative); Leukocyte Esterase-Dipstick 100 /ul (Negative); Nitrite-Dipstick Positive (Negative); Occult Blood-Urine 10 /ul (Negative); Protein-Dipstick 30 mg/dl (Negative); Specific Gravity, Urine 1.015 (1.002-1.030); Urine Clarity Clear (Clear); Urine Urobilinogen 8 mg/dl (Normal)
[2021-07-20 21:51] LABS: Urine Bilirubin Dipstick 6 mg/dL (Negative)
[2021-07-20 21:52] LABS: Red Blood Cells-Urine 0-5 SEEN /hpf (0-5); White Blood Cells 5-10 SEEN /hpf (0-5)
[2021-07-20 21:57] LABS: Internal QC Validated? YES +Cl - CLEAR BKGD; Pregnancy, Urine Negative Negative
--- NOTE | 2021-07-20 22:08 | CT_ITS ---
EXAM: CT ABDOMEN AND PELVIS WITHOUT INTRAVENOUS CONTRAST CLINICAL INDICATION: Abdominal pain TECHNIQUE: Helically acquired images were obtained of the abdomen and pelvis without intravenous contrast. This CT exam was performed using one or more of the following dose reduction techniques: automated exposure control, adjustment of the mA and/or kV according to patient size, and/or use of iterative reconstruction technique. This report was created using [employer] report generation technology. RADIATION DOSE: CTDIvol = 11.59 mGy, DLP = 549.91 mGy-cm COMPARISON: September 20, 2016. Enhanced exam. FINDINGS: LOWER THORAX: Unremarkable. Lung bases are clear. No cardiomegaly. No significant pericardial effusion. ABDOMEN: LIVER: Unremarkable. Homogeneous. GALLBLADDER AND BILE DUCTS: Cholecystectomy. No intra- or extrahepatic biliary ductal dilation. PANCREAS: Unremarkable. No focal cystic mass. SPLEEN: Unremarkable. Normal size without focal cystic or solid mass. ADRENALS: Unremarkable. No nodules. KIDNEYS AND URETERS: Unremarkable. Normal renal size and position. No hydronephrosis. STOMACH AND BOWEL: Moderate mixed density material and mild gas in the stomach. No dilated small bowel loops. Moderate stool in most of the proximal half of the colon, mild gas in most of the distal colon and rectum. No focal inflammatory change. PELVIS: APPENDIX: Nonvisualized appendix. BLADDER: Unremarkable. REPRODUCTIVE: Hysterectomy. ABDOMEN and PELVIS: INTRAPERITONEAL SPACE: Unremarkable. No ascites or other fluid collection. No free air. BONES/JOINTS: Unremarkable. No suspicious lytic or blastic abnormality. SOFT TISSUES: Unremarkable. No discrete abdominal or pelvic wall hernia. VASCULATURE: Unremarkable. Abdominal aorta is non-dilated. LYMPH NODES: Unremarkable. No enlarged lymph nodes. CT/Abdomen/Pelvis without Cont IMPRESSION: No acute findings in the abdomen or pelvis. Multifocal postoperative changes. Moderate stool in the proximal half the colon. Electronically Signed: Fern Wills MD at 23:22 EDT ,
[2021-07-20] MEDS: Ondansetron 4 MG/2 ML Vial IV (22:18)
[2021-07-20] MEDS: Morphine 4 MG/ML Syringe IV (22:19)
[2021-07-20 22:42] LABS: Absolute Lymphocyte Count 3.33 X10^3/uL (0.83-4.51); Absolute Neutrophil Count 6.5 X10^3/uL (2.0-7.7); Basophil% 0.9 % (0-1); Eosinophil# 0.33 X10^3/uL; Hematocrit 38.9 % (37-47); Hemoglobin 13.1 g/dL (12.0-15.0); Lymphocyte # 3.33 X10^3/ul (0.83-4.51); Lymphocyte % 30.1 % (19-41); Mean Corp Hgb Conc 33.7 g/dL (32-36); Mean Platelet Vol. 9.1 fl (6.2-12.0); Monocyte# 0.81 X10^3/uL; Monocyte% 7.3 % (0-10); NRBC Flagged by Analyzer 0 % (0-5); Neutrophil # 6.45 X10^3/uL (2.7-7.7); Neutrophil % 58.4 % (47-70); Platelet Count 229 K/mm3 (150-450); RBC Distribution Width CV 12.7 % (11.6-14.6); RBC Distribution Width SD 42.5 fl (35.1-43.9); Red Blood Count 4.23 M/mm3 (4.2-5.4); White Blood Count 11.1 K/mm3 (4.4-11.0)
[2021-07-20 23:05] LABS: AST(SGOT) 16 U/L (15-37); Alanine Aminotransfer ALT/SGPT 23 U/L (13-56); Albumin, Serum 3.6 g/dL (3.2-5.0); Alkaline Phosphatase 115 U/L (45-117); Anion Gap 6 (5-15); BUN 18 mg/dL (7-18); BUN/Creat Ratio 17.1 RATIO (10-20); Calcium,Total 9.1 mg/dL (8.5-10.1); Chloride 105 mmol/L (98-107); Creatinine, Serum 1.05 mg/dL (0.55-1.02); EST Glomerular Filtration Rate 60 mL/min (>60); Est Glom Filt Rate - Afr Amer 72 mL/min (>60); Estimated Creatinine Clearance 62.01 ml/min; Globulin 3.7 g/dL (2.2-4.2); Glucose 87 mg/dL (74-106); Potassium 3.7 mmol/L (3.5-5.1); Protein, Total 7.3 g/dL (6.4-8.2); Sodium Level 135 mmol/L (136-145)
[2021-07-20 23:49] VITALS: BP 119/67; PULSE 67
--- NOTE | 2021-07-21 00:14 | EX.ED.DYSGE1 ---
HPI History of Present Illness Chief Complaint: Complaint Informant: patient Onset/Context/Timing Onset: Today Context: Gradual Onset Timing: Continuous Quality: Aching, dull Location: Lower abdomen Worsened by: Nothing Relieved by: Nothing Narrative Narrative: Patient presents with pain in the lower abdomen and pelvis that became worse tonight. Patient states she was recently diagnosed with a urinary tract infection but her pain became severe tonight. Patient describes her pain as aching and dull. Patient states it is over the suprapubic area. Patient states nothing makes it worse and nothing makes it better. Patient admits to nausea but denies any vomiting. Patient admits to some dysuria and hematuria. Patient states she has been taking Azo and her antibiotic with no improvement. Patient denies any fevers or chills. Patient denies any back or flank pain. [facility] Medical History Anxiety and depression Asthma Delivery with history of GERD (gastroesophageal reflux disease) Insomnia Urinary tract infection with hematuria Home Medications albuterol sulfate [ProAir HFA] 2 puff INHALATION Q4H PRN PRN 11/07/16 [History Last Taken 04/30/19 04:00 2 PUFF] dicyclomine 20 mg PO Q6H PRN PRN 11/07/16 [History Last Taken Unknown] estradiol 1 mg PO DAILY 11/07/16 [History Last Taken 04/18/19] mometasone-formoterol [Dulera] 13 g IH BID 11/07/16 [History Last Taken 04/18/19] sumatriptan succinate [Imitrex] 1 tab PO DAILY PRN 11/07/16 [History Last Taken Unknown] topiramate 200 mg PO BID 11/07/16 [History Last Taken 04/18/19] sertraline 100 mg PO DAILY tab 11/08/16 [Rx Last Taken 04/30/19 04:00 100 MG] bupropion HCl 450 mg PO DAILY 12/05/18 [History Last Taken 04/18/19] diclofenac sodium 75 mg PO BIDCM 12/05/18 [History Last Taken 04/18/19] ranitidine HCl 150 mg PO BID 12/05/18 [History Last Taken 04/17/19] tizanidine 4 mg PO PRN PRN 12/05/18 [History Last Taken Unknown] trazodone 100 mg PO QHS 12/05/18 [History Last Taken 04/17/19] cetirizine 10 mg PO DAILY 01/30/19 [History Last Taken 04/18/19] ondansetron 4 mg PO Q8H PRN PRN #10 tab 04/18/19 [Rx Last Taken Unknown] aripiprazole 5 mg PO DAILY 11/05/19 [History Last Taken Unknown] metoclopramide HCl 10 mg PO 4X/DAY PRN #20 tablet 06/30/20 [Rx Last Taken Unknown] nitrofurantoin monohydrate/macrocrystals 100 mg capsule 100 mg PO Q12H 5 Days #10 cap 07/20/21 [Rx Last Taken Unknown] Allergy/AdvReac Type Severity Reaction Status Date / Time ciprofloxacin Allergy Rash Verified 03/09/21 17:57 [id number]-vfrm Allergy Rash Verified 03/09/21 17:57 [From Ajovy Syringe] gabapentin Allergy Other Verified 03/09/21 17:57 Surgical History (Updated 07/21/21 @ 00:[address] Shon Griffiths DO) History of hysterectomy Social History Smoking Status: Current every day smoker tobacco type: cigarettes alcohol intake: current alcohol intake frequency: a few times a month ROS ROS ED Constitutional Constitutional ED: Denies chills or fever(s) Eyes Eyes: Denies blurry vision or change in vision ENT ENT ED: Denies rhinorrhea or sore throat Cardiovascular Cardiovascular: Denies chest pain or palpitations Respiratory/Chest Respiratory/Chest: Reports dyspnea; Denies cough Gastrointestinal Gastrointestinal: Reports nausea; Denies vomiting Genitourinary Genitourinary ED: Reports dysuria and hematuria Musculoskeletal Musculoskeletal: Denies back pain or neck pain Integumentary Denies abscess or rash Neurologic Neurologic: Reports headache(s); Denies weakness Allergic/Immunologic Allergic/Immunologic ED: Denies mouth swelling or urticaria EXAM Physical Exam Const Vital Signs: 07/20/21 21:15 07/20/21 23:49 Temperature 97.2 F L Temperature Source Temporal Pulse Rate 82 67 Respiratory Rate 16 Blood Pressure 134/72 H 119/67 Blood Pressure Mean 92 Pulse Ox 97 Oxygen Delivery Method Room Air Positive well nourished and well developed General Appearance ED: well developed and NAD HEENT Reports moist mucous membranes Neck supple and no JVD Resp normal respiratory effort and clear to auscultation bilaterally Cardio regular rate and regular rhythm GI normal to inspection, nondistended, normoactive bowel sounds Palpation: soft and tender LLQ, RLQ and suprapubic; Negative for guarding or rebound tenderness present Back/Spine General Back: CVA tenderness left (Mild) Neuro oriented x3, CN's II-XII intact bilaterally and no sensory deficits noted Sensorium / Orientation: alert Motor Exam: strength 5/5 throughout Psych mental status grossly normal MDM MDM MDM Narrative Medical decision making narrative: Patient was given morphine and Zofran here. CBC shows a slight leukocytosis of 11.1. Comprehensive metabolic profile was essentially within normal limits. Urinalysis shows leukocyte esterase of 100 with positive nitrites and 5-10 white blood cells. Urine hCG was ordered per protocol by nursing and was negative. Patient was advised of the findings. Patient was feeling better on reevaluation. Patient was instructed to continue her antibiotics as prescribed. Patient was instructed to follow-up with her primary care physician in 5 to 7 days. Patient understood and was agreeable with the plan. All questions were answered. Lab Data Attestation: I reviewed the patient's lab results. Labs: Laboratory Results - last 24 hr 07/20/21 07/20/21 07/20/21 21:25 22:20 22:20 WBC 11.1 H RBC 4.23 Hgb 13.1 Hct 38.9 MCV 92.0 MCH 31.0 MCHC 33.7 RDW Std Deviation 42.5 RDW Coeff of [place] 12.7 Plt Count 229 MPV 9.1 Immature Gran % (Auto) 0.300 Neut % (Auto) 58.4 Lymph % (Auto) 30.1 [place] % (Auto) 7.3 Eos % (Auto) 3.0 Baso % (Auto) 0.9 Absolute Neuts (auto) 6.5 Absolute Lymphs (auto) 3.33 Nucleated RBC % 0 Sodium 135 L Potassium 3.7 Chloride 105 Carbon Dioxide 24.0 Anion Gap 6 BUN 18 Creatinine 1.05 H Estim Creat Clear Calc 62.01 Est GFR (MDRD) Af Amer 72 Est GFR (MDRD) Non-Af 60 BUN/Creatinine Ratio 17.1 Glucose 87 Calcium 9.1 Total Bilirubin 0.30 AST 16 ALT 23 Alkaline Phosphatase 115 Total Protein 7.3 Albumin 3.6 Globulin 3.7 Albumin/Globulin Ratio 1.0 Urine Color [place] Urine Clarity Clear Urine pH 6.0 Ur Specific [place] 1.015 Urine Protein 30 H Urine Glucose (UA) Normal Urine Ketones Negative Urine Occult Blood 10 H Urine Nitrite Positive H Urine Bilirubin 6 H Urine Urobilinogen 8 H Ur Leukocyte Esterase 100 H Urine RBC 0-5 SEEN Urine WBC 5-10 SEEN Ur Squamous Epith Cells 0 SEEN Urine Bacteria 0 SEEN Urine Mucus 0 SEEN Urine Test Negative Radiography Diagnostic Testing: Clinical Impression(s) from Imaging Studies Abdomen/Pelvis CT 07/20/21 22:08 IMPRESSION: No acute findings in the abdomen or pelvis. Multifocal postoperative changes. Moderate stool in the proximal half the colon. Electronically Signed: Fern Wills MD at 23:22 EDT Reading Location ID and State: [facility] [place] Tel , Service support , Discharge Plan Triage Chief Complaint: Complaint ED Provider: Shon Griffiths Dx/Rx/DC Orders Clinical Impression: Urinary tract infection with hematuria, Pelvic pain Instructions: ED CYSTITIS Female Adult Prescriptions: No Action nitrofurantoin monohyd/m-cryst [Macrobid] 100 mg capsule 100 mg PO Q12H 5 Days Qty: 10 RF: 0 sumatriptan succinate [Imitrex] 100 MG tablet 1 tab PO DAILY PRN (Reason: Migraine Symptoms) RF: 0 estradiol 1 MG tablet 1 mg PO DAILY RF: 0 topiramate 200 MG tablet 200 mg PO BID RF: 0 albuterol sulfate [ProAir HFA] 1 PUFF inhaler 2 puff inhalation Q4H PRN PRN (Reason: Sob &/Or Wheezing) RF: 0 dicyclomine 10 MG capsule 20 mg PO Q6H PRN PRN (Reason: Cramp) RF: 0 mometasone-formoterol [Dulera] 8.8 GM HFA aerosol inhaler 13 g IH BID RF: 0 sertraline 50 MG tablet 100 mg PO DAILY RF: 0 trazodone 100 MG tablet 100 mg PO QHS RF: 0 ranitidine HCl 150 MG tablet 150 mg PO BID RF: 0 diclofenac sodium 75 MG tablet 75 mg PO BIDCM RF: 0 bupropion HCl 300 MG tablet extended release 24 hr 450 mg PO DAILY RF: 0 tizanidine 4 MG capsule 4 mg PO PRN PRN (Reason: Spasms) RF: 0 cetirizine 10 MG tablet 10 mg PO DAILY RF: 0 ondansetron 4 MG tablet 4 mg PO Q8H PRN PRN (Reason: Nausea) Qty: 10 RF: 0 aripiprazole 5 MG tablet 5 mg PO DAILY RF: 0 metoclopramide HCl 10 MG tablet 10 mg PO 4X/DAY PRN (Reason: Headache) Qty: 20 RF: 0 Primary Care Provider: Deny Link NP Referrals: Deny Link NP, LAPID[employer] APPRENTICE-C [Primary Care Provider] - 3-5 Days Disposition Disposition: Home, Self Care Discharge Date/Time: 07/20/21 23:50
== END 2021-07-20 23:50 | disposition home or self-care (01) ==
PROVIDERS: Emergency Provider Emergency Medicine; PCP Nurse Practitioner Family; Visit Provider Emergency Medicine
DX: N39.0 Urinary tract infection, site not specified (principal); R31.9 Hematuria, unspecified; R10.2 Pelvic and perineal pain; R11.0 Nausea; J45.909 Unspecified asthma, uncomplicated; K21.9 Gastro-esophageal reflux disease without esophagitis; F32.A Depression, unspecified; F41.9 Anxiety disorder, unspecified; F17.210 Nicotine dependence, cigarettes, uncomplicated; Z79.899 Other long term (current) drug therapy
CPT/HCPCS: 74176; 80053; 81001; 81025; 85025; 87077; 87086; 87088; 87186; 96374; 96375; 99283; A4216; J2405

== ENCOUNTER → 2021-07-20 | Outpatient (CLI) | payer MEDICAID, SELFPAY ==
[2021-07-20 13:26] LABS: Mucous, Urine 0 SEEN /hpf (<or=2+); Squamous Epithelial Cells - UA 0 SEEN /hpf (5-10)
[2021-07-20 13:41] LABS: Color, Urine Yellow (Yellow); Glucose, Dipstick Normal (Normal); Ketone-Dipstick Negative (Negative); Leukocyte Esterase-Dipstick 500 /ul (Negative); Nitrite-Dipstick Negative (Negative); Occult Blood-Urine 150 /ul (Negative); Protein-Dipstick 30 mg/dl (Negative); Urine Bilirubin Dipstick Negative (Negative); Urine Clarity Cloudy (Clear); Urine Urobilinogen Normal (Normal)
[2021-07-20 14:12] LABS: Bacteria 3+ /hpf (None Seen); Red Blood Cells-Urine 5-10 SEEN /hpf (0-5); White Blood Cells 25-50 SEEN /hpf (0-5)
== END | disposition home or self-care (01) ==
LOC: LABSPEC 13:11
PROVIDERS: PCP Nurse Practitioner Family; Referring Provider Physician Assistant; Visit Provider Physician Assistant
DX: R30.9 Painful micturition, unspecified (principal)
CPT/HCPCS: 81001; 87088; 87077; 87086